=== PATIENT | female | born 1945 | race Caucasian/White ===

== ENCOUNTER 2019-05-15 08:20 | Outpatient (CLI) | payer MEDICARE, SELFPAY ==
--- NOTE | ~2019-05-15 | CT_ITS ---
EXAMINATION: CT abdomen pelvis w con DATE: 05/15/2019 08:44 INDICATION: Colorectal neoplasm. TECHNIQUE: Computed tomography (CT) of the abdomen and pelvis was performed with 100 mL Omnipaque 350 intravenous contrast. Automated exposure control and iterative reconstruction technique were employe d. The dose-length product was 199.63 mGy-cm. COMPARISON: CT abdomen and pelvis 06/14/2018 FINDINGS: The visualized portions of the lung bases are clear without pneumonia or pleural effusion. The heart size is normal. No pericardial effusion. The liver, gallbladder, spleen, and adrenal glands are normal. There is a punctate calcification in the pancreas that may be chronic pancreatitis. Ther e are cysts in the kidneys measuring up to 7 mm on the right. There are changes of right hemicolectom y. There are no dilated loops of bowel. There are no pathologically enlarged lymph nodes. There is no free intraperitoneal fluid. There is lumbar levoscoliosis and severe spondylosis. IMPRESSION: 1. No evidence of metastatic disease. Reviewed, dictated and finalized at location A.
[2019-05-15 08:40] LABS: Estimated Glomerular Filt Rate > 60
== END 2019-05-15 08:21 | disposition home or self-care (01) ==
PROVIDERS: PCP Emergency Medicine; Visit Provider Internal Medicine Hematology & Oncology
DX: D49.0 Neoplasm of unspecified behavior of digestive system (principal)
CPT/HCPCS: 36415; 74177; Q9967

== ENCOUNTER 2019-09-18 09:04 | Outpatient (CLI) | payer MEDICARE, SELFPAY ==
--- NOTE | ~2019-09-18 | DEXA_ITS ---
Bone Density Report Name: Elke Haque Age: 74 Sex: Female Ethnicity: White Date of : 1945 Indication: postmenopausal osteoporosis; monitoring treatment; hysterectomy; Referring Provider: DASIA ANDREWS Study: Bone densitometry was performed. Exam Date: September 18, 2019 Accession number: [id number] Bone Density: Region BMD T-score Z-score Classification AP Spine (L1-L4) 0.920 -1.2 1.1 Osteopenia Femoral Neck (Left) 0.505 -3.1 -1.2 Osteoporosis Total Hip (Left) 0.606 -2.8 -1.1 Osteoporosis Total Hip Bilateral Avg 0.632 -2.6 -0.9 Osteoporosis Femoral Neck (Right) 0.563 -2.6 -0.6 Osteoporosis Total Hip (Right) 0.656 -2.3 -0.7 Osteopenia World Health Organization criteria for BMD impression classify patients as: Normal (T-score at or above -1.0), Osteopenia (T-score between -1.0 and -2.5), or Osteoporosis (T-score at or below -2.5). 10-year Fracture Risk: FRAX not reported because: Some T-score for Spine Total or Hip Total or Femoral Neck at or below -2.5 Treated for osteoporosis Previous Exams: Region Exam Age BMD T-score BMD Change BMD Change Date g/cm2 vs Baseline vs Previous AP Spine(L1-L4) 09/18/2019 74 0.920 -1.2 0.072(8.5%)* 0.072(8.5%)* 01/14/2014 68 0.848 -1.8 Total Hip(Left) 09/18/2019 74 0.606 -2.8 -0.011(-1.8%) -0.012(-1.9%) 03/16/2016 70 0.618 -2.7 0.001(0.1%) 0.001(0.1%) 01/14/2014 68 0.617 -2.7 Total Hip(Right) 09/18/2019 74 0.656 -2.3 0.012(1.8%) 0.009(1.4%) 03/16/2016 70 0.647 -2.4 0.003(0.4%) 0.003(0.4%) 01/14/2014 68 0.645 -2.4 *Denotes significance at 95% confidence level, LSC for AP Spine = 0.022 g/cm2, LSC for Total Hip = 0.027 g/cm2 Clinical Information Provided by Patient: Is being treated for osteoporosis Has used the following medications: Fosamax (i.e. alendronate), Vitamin D, Calcium Has the following medical conditions: Hysterectomy Patient maximum height was 64 Menopause Age: 37 Drinks caffeinated beverages Onset of menses at age 18 Number of children 0 Impression: The patient has osteoporosis, based on the Left Femoral Neck T-score. No significant bone loss was observed. Discussion: PATIENT UNDER TREATMENT WITH NO SIGNIFICANT BMD LOSS SINCE LAST EXAM. In an untreated patient, BMD typically declines with age. A lack of decline or gain is usually a sign that treatment is efficacious and fracture risk is reduced. It is important to ask patients w
--- NOTE | ~2019-09-18 | MM_ITS ---
EXAMINATION: MM screening ingris BI w julia HISTORY: Screening TECHNIQUE: Craniocaudal and mediolateral oblique 3-D tomosynthesis images were obtained and synthetic 2-D images were generated. CAD analysis was submitted and interpreted. COMPARISON: Comparison to multiple prior studies sequentially, with oldest reviewed study dated 11/06. BREAST PARENCHYMAL COMPOSITION: There are scattered areas of fibroglandular density. FINDINGS: Bilateral breast asymmetries are stable. There is no evidence of suspicious mass, calcifica tion, or architectural distortion to suggest malignancy in either breast. There has been no suspiciou s interval change. IMPRESSION: 1. No mammographic evidence of malignancy. 2. Recommend routine screening mammography in one year. BI-RADS Category 2: Benign finding(s). Reviewed, dictated and finalized at location A.
== END 2019-09-18 09:05 | disposition home or self-care (01) ==
LOC: ANHIMG 09:06
PROVIDERS: PCP Emergency Medicine; Visit Provider Emergency Medicine
DX: Z12.31 Encounter for screening mammogram for malignant neoplasm of breast (principal); Z78.0 Asymptomatic menopausal state; M85.89 Other specified disorders of bone density and structure, multiple sites; M81.0 Age-related osteoporosis without current pathological fracture
CPT/HCPCS: 77063; 77067; 77080

== ENCOUNTER 2019-12-04 12:56 | Outpatient (CLI) | payer MEDICARE, SELFPAY | END 2019-12-04 12:57 | disposition home or self-care (01) | LOC: ANHLAB 12:58 | PROVIDERS: PCP Emergency Medicine; Visit Provider Emergency Medicine | DX: E03.9 Hypothyroidism, unspecified (principal) | CPT/HCPCS: 36415; 84443 ==

== ENCOUNTER 2020-01-15 08:51 | Outpatient (CLI) | payer MEDICARE, SELFPAY ==
--- NOTE | ~2020-01-15 | CT_ITS ---
EXAMINATION: CT abdomen pelvis w con DATE: 01/15/2020 09:21 INDICATION: Restaging of colon cancer TECHNIQUE: Computed tomography (CT) of the abdomen and pelvis was performed with 100 cc Omnipaque 350 intravenous contrast. Automated exposure control and iterative reconstruction technique were employe d. Exam dose: 303.15 mGy-cm total exam DLP. COMPARISON: 05/15/2019 CT abdomen pelvis FINDINGS: The lung bases are clear. Normal heart size. No pericardial or pleural effusion. The liver, gallbladder, bile ducts, spleen, pancreas, pancreatic duct and adrenal glands are unremark able. 7 mm upper pole right renal cyst. 6 mm lower pole left renal probable cyst. No urinary tract calculus or hydroureteronephrosis. There is atherosclerotic calcification of the abdominal aorta but no aneurysm. No intraperitoneal or retroperitoneal or pelvic mass lesion or adenopathy or ascites is detected. The urinary bladder is re latively evacuated, unremarkable. Status post hysterectomy. There is mild diverticulosis of the sigmoid colon; no CT evidence of diverticulitis. Status post right colon resection for history of malignant colon neoplasm. No bowel obstruction, justin l wall thickening, pneumatosis or intraperitoneal free air. Small fat-containing umbilical hernia. Prominent degenerative disc disease at L3-4, with associated minimal retrolisthesis. No suspicious osteolytic or osteoblastic lesions are noted. IMPRESSION: Status post right colectomy for colon cancer Probable bilateral renal cysts Status post hysterectomy Mild sigmoid colon diverticulosis Reviewed, dictated and finalized at Location A. Reviewed, dictated and finalized at location A. LTER
[2020-01-15 09:15] LABS: Estimated Glomerular Filt Rate > 60
== END 2020-01-15 08:52 | disposition home or self-care (01) ==
PROVIDERS: PCP Emergency Medicine; Visit Provider Internal Medicine Hematology & Oncology
DX: C18.2 Malignant neoplasm of ascending colon (principal); N28.1 Cyst of kidney, acquired; Z90.710 Acquired absence of both cervix and uterus; I70.0 Atherosclerosis of aorta; K42.9 Umbilical hernia without obstruction or gangrene; M47.816 Spondylosis without myelopathy or radiculopathy, lumbar region
CPT/HCPCS: 74177; Q9967

== ENCOUNTER 2020-04-01 13:31 | Outpatient (CLI) | payer MEDICARE, SELFPAY ==
[2020-04-01 17:07] LABS: Thyroid Stimulating Hormone 0.405 uIU/mL (0.465-4.680)
== END 2020-04-01 13:32 | disposition home or self-care (01) ==
LOC: ANHLAB 13:32
PROVIDERS: PCP Emergency Medicine; Visit Provider Emergency Medicine
DX: E03.9 Hypothyroidism, unspecified (principal)
CPT/HCPCS: 36415; 84443

== ENCOUNTER 2020-07-22 08:39 | Outpatient (CLI) | payer MEDICARE, SELFPAY ==
[2020-07-22 10:43] LABS: Cholesterol 168 mg/dL (0-200); HDL Direct 63 mg/dL; Triglycerides 122 mg/dL (<150)
[2020-07-22 10:54] LABS: LDL Cholesterol Direct 81 mg/dL
[2020-07-22 11:17] LABS: Thyroid Stimulating Hormone 0.105 uIU/mL (0.465-4.680)
== END 2020-07-22 08:40 | disposition home or self-care (01) ==
LOC: ANHLAB 08:40
PROVIDERS: PCP Emergency Medicine; Visit Provider Emergency Medicine
DX: E03.9 Hypothyroidism, unspecified (principal); E78.5 Hyperlipidemia, unspecified
CPT/HCPCS: 36415; 80061; 84443

== ENCOUNTER 2020-09-16 14:38 | Outpatient (CLI) | payer MEDICARE, SELFPAY | END 2020-09-16 14:39 | disposition home or self-care (01) | LOC: ANHLAB 14:41 | PROVIDERS: PCP Emergency Medicine; Visit Provider Emergency Medicine | DX: E03.9 Hypothyroidism, unspecified (principal) | CPT/HCPCS: 36415; 84443 ==

== ENCOUNTER 2020-12-09 15:19 | Outpatient (CLI) | payer MEDICARE, SELFPAY ==
--- NOTE | ~2020-12-09 | MM_ITS ---
EXAMINATION: MM screening ingris BI w julia HISTORY: Screening TECHNIQUE: Craniocaudal and mediolateral oblique 3-D tomosynthesis images were obtained and synthetic 2-D images were generated. CAD analysis was submitted and interpreted. COMPARISON: Comparison to multiple prior studies sequentially, with oldest reviewed study dated 03/2014. BREAST PARENCHYMAL COMPOSITION: The breasts are heterogeneously dense, which may obscure small masses . FINDINGS: There is no evidence of suspicious mass, calcification, or architectural distortion to sugg est malignancy in either breast. There has been no suspicious interval change. IMPRESSION: 1. No mammographic evidence of malignancy. 2. Recommend routine screening mammography in one year. BI-RADS Category 1: Negative Reviewed, dictated and finalized at location A.
== END 2020-12-09 15:20 | disposition home or self-care (01) ==
PROVIDERS: PCP Emergency Medicine; Visit Provider Emergency Medicine
DX: Z12.31 Encounter for screening mammogram for malignant neoplasm of breast (principal)
CPT/HCPCS: 77063; 77067

== ENCOUNTER 2021-01-13 08:31 | Outpatient (CLI) | payer MEDICARE, SELFPAY ==
--- NOTE | ~2021-01-13 | CT_ITS ---
EXAMINATION: CT abdomen pelvis w con INDICATION: Malignant neoplasm of the ascending colon TECHNIQUE: Computed tomographic images of the abdomen and pelvis were obtained after the administrati on of 100 cc of Omnipaque 350 intravenous contrast. The dose-length product (DLP) was 276.74 mGy-cm. Automated exposure control and iterative reconstruction technique were employed. COMPARISON: 01/15/2020, 05/15/2019, 06/24/2018 FINDINGS: The lung bases are clear. The heart size is normal. A stable 6 mm hyperenhancing lesion of the right hepatic lobe is consistent with a flash filling hemangioma or focal nodular hyperplasia. No suspicious liver mass is identified. The spleen, gallbladder, and adrenal glands are normal. A punct ate calcification of the pancreas could reflect chronic pancreatitis. Cysts of the kidneys measure up to 8 mm on the right. There are changes of right hemicolectomy. No pathologically enlarged abdominal or pelvic lymph nodes are identified. There is no free intraperitoneal gas or evidence of bowel obst ruction. There is calcified atherosclerosis of the aorta and many of the other arteries. There is mod erate lumbar spondylosis. IMPRESSION: 1. Changes of right hemicolectomy without evidence of recurrent or metastatic disease. Reviewed, dictated and finalized at location A. 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 Changes of right hemicolectomy without evidence of recurrent or metastatic d isease.
== END 2021-01-13 08:32 | disposition home or self-care (01) ==
LOC: ANHIMG 08:35
PROVIDERS: PCP Emergency Medicine; Visit Provider Internal Medicine Hematology & Oncology
DX: C18.2 Malignant neoplasm of ascending colon (principal)
CPT/HCPCS: 74177; Q9967

== ENCOUNTER 2021-03-03 13:47 | Outpatient (CLI) | payer MEDICARE, SELFPAY | END 2021-03-03 13:48 | disposition home or self-care (01) | LOC: ANHLAB 13:51 | PROVIDERS: PCP Emergency Medicine; Visit Provider Internal Medicine Hematology & Oncology | DX: R79.89 Other specified abnormal findings of blood chemistry (principal) | CPT/HCPCS: 36415; 84443 ==

== ENCOUNTER 2021-04-28 13:06 | Outpatient (CLI) | payer MEDICARE, SELFPAY ==
[2021-04-28 16:46] LABS: Alanine Aminotransferase 17 U/L (4-35); Albumin Level 4.2 g/dL (3.5-5.1); Alkaline Phosphatase 80 U/L (38-126); Anion Gap 4 mmol/L (8-16); Aspartate Amino Transferase 30 U/L (14-36); Bilirubin,Total 0.7 mg/dL (0.2-1.3); Blood Urea Nitrogen 16 mg/dL (7-17); Calcium 9.2 mg/dL (8.4-10.2); Carbon Dioxide 27 mmol/L (22-30); Chloride 108 mmol/L (98-107); Cholesterol 158 mg/dL (0-200); Estimated Glomerular Filt Rate > 60; Glucose 84 mg/dL (65-110); HDL Direct 52 mg/dL; Potassium 4.1 mmol/L (3.4-5.0); Sodium 139 mmol/L (137-145); Triglycerides 105 mg/dL (<150)
[2021-04-28 16:57] LABS: LDL Cholesterol Direct 72 mg/dL
[2021-04-28 17:36] LABS: Thyroid Stimulating Hormone 0.798 uIU/mL (0.465-4.680)
== END 2021-04-28 13:07 | disposition home or self-care (01) ==
LOC: ANHLAB 13:07
PROVIDERS: PCP Emergency Medicine; Visit Provider Internal Medicine Hematology & Oncology
DX: I10 Essential (primary) hypertension (principal)
CPT/HCPCS: 36415; 80053; 80061; 84443

== ENCOUNTER 2021-09-03 00:56 | Day surgery (SDC) | payer MEDICARE, SELFPAY ==
[2021-08-19 12:24] VITALS: BMI 22.3
--- NOTE | 2021-09-02 13:29 | SUR.PREOP ---
1329 Patient called and instructed not to take the magnesium citrate due to possible contamination. Patient voiced understanding.
[2021-09-03 08:36] VITALS: BP 154/91; PULSE 93; RESP 19; TEMP 36.4; O2SAT 100
--- NOTE | 2021-09-03 08:42 | PM.IMHP ---
H&P: HPI History of Present Illness Date/Time: 09/03/21 08:42 Chief Complaint: history of colon cancer. Narrative: This is a 76-year-old white female patient presents for screening colonoscopy. Patient was found to have colon cancer diagnosed 2017. This was subsequently treated resected. Patient had unremarkable colonoscopy 3 years ago 2018. Patient presents today for follow-up surveillance screening colonoscopy. Patient reports that her current weight appetite and bowel movements are normal. She denies abdominal pain. Has had no bleeding. Family history is noncontributory. Review of Systems Review of Systems: Review of systems noncontributory. [facility] Past Medical History Medical History Abnormal ultrasound of breast Adnexal cyst Adnexal mass Age-related osteoporosis without current pathological fracture Atrial fibrillation X1 DURING CHEMO, TAKES XARELTO. FOLLOWS WITH Chronic a-fib Colon cancer RT COLON RESECTION 07/2017, LAST CHEMO 03/2018 Essential (primary) hypertension Fibrocystic changes of right breast HTN (hypertension) Hypercholesterolemia Hypothyroidism Lesion of ovary Mass of right breast on mammogram Mixed hyperlipidemia Neoplasms New onset a-fib Other hyperlipidemia Positive fecal occult blood test Post menopausal problems Villous adenoma of colon Vitamin D deficiency Family History Family History Mother Hypertension Family history of malignant neoplasm Family history of lung cancer Family history of malignant neoplasm of bone Family history of malignant neoplasm of breast Father Hypertension, Onset Age: 77 Family history of malignant neoplasm, Onset Age: 77 Family history of throat cancer Family history of malignant neoplasm of urinary bladder Other Family history of cardiovascular disease Social History Social History Smoking status: Never smoker Alcohol intake: never Substance use: never Substance use type: does not use Living arrangements: alone Gender identity (if verbalized by the patient): Female Spiritual care concerns: No Meds Home Medications and Allergies Home Medications Medication Instructions Recorded Confirmed Type calcium carbonate 600 mg-vitamin 1 cap PO BID 11/23/18 09/03/21 History D3 12.5 mcg (500 unit) capsule (Calcium 600 with Vitamin D3) vitamin E 268 mg (400 unit) capsule 400 unit PO DAILY 02/02/19 09/03/21 History alprazolam 0.25 mg tablet See Rx Instructions .Route 02/17/20 07/28/22 History .COMPLEX PRN Anxiety lutein 6 mg tablet 6 mg PO DAILY 03/26/19 09/03/21 History multivitamin 1 tablet PO .COMPLEX 03/26/19 09/03/21 History metoprolol succinate 50 mg See Rx Instructions .Route 09/24/20 09/03/21 Rx tablet,extended release 24 hr .COMPLEX #90 tabs alendronate 70 mg tablet See Rx Instructions .Route 12/31/20 09/03/21 Rx .COMPLEX #12 tabs simvastatin 40 mg tablet See Rx Instructions .Route 03/06/21 09/03/21 Rx .COMPLEX #90 tabs levothyroxine 75 mcg tablet 75 mcg PO DAILY #90 tabs 05/11/21 09/03/21 Rx rivaroxaban 15 mg tablet (Xarelto) See Rx Instructions .Route 06/22/21 09/03/21 Rx .COMPLEX #90 tabs peg 3350-electrolytes 236 240 ml PO Q10M #4,000 mL 08/04/21 09/03/21 Rx gram-22.74 gram-6.74 gram-5.86 gram solution (Golytely) Allergies Allergy/AdvReac Type Severity Reaction Status Date / Time No Known Allergies Allergy Verified 09/03/21 08:32 Vital Signs Vital Signs - 24 hr 09/03/21 08:36 Temperature 97.6 F Pulse Rate 93 Respiratory Rate 19 Blood Pressure 154/91 H Pulse Oximetry 100 Oxygen Delivery Room Air Exam Narrative: Physical exam reveals patient to be alert. Vital signs stable. HEENT exam is unremarkable. Patient is anicteric. Lungs are clear to auscultation and percussion. Hear
--- NOTE | 2021-09-03 08:43 | WPDANESEPPF ---
Anes - Initial Pre Proc Eval Procedure: Operation Date: 09/03/21 09:00 Proposed Procedures p Screening Colonoscopy - Panchito Santa MD Date/Time: 09/03/21 08:43 Surgeon: Panchito Santa MD Pre Op Diagnosis: hx of colon ca Patient Data Age: 76 Gender: F Height: 1.63 m Weight: 58.5 kg Last Vital Signs Temp 36.4 C 09/03/21 08:36 Pulse 93 09/03/21 08:36 Resp 19 09/03/21 08:36 BP 154/91 H 09/03/21 08:36 Pulse Ox 100 09/03/21 08:36 O2 Del Method Room Air 09/03/21 08:36 Allergies Allergy/AdvReac Type Severity Reaction Status Date / Time No Known Allergies Allergy Verified 09/03/21 08:32 Home Medications Medication Instructions Recorded Confirmed Type calcium carbonate 600 mg-vitamin 1 cap PO BID 11/23/18 09/03/21 History D3 12.5 mcg (500 unit) capsule (Calcium 600 with Vitamin D3) vitamin E 268 mg (400 unit) capsule 400 unit PO DAILY 02/02/19 09/03/21 History alprazolam 0.25 mg tablet See Rx Instructions .Route 03/26/19 09/03/21 History .COMPLEX PRN Anxiety lutein 6 mg tablet 6 mg PO DAILY 03/26/19 09/03/21 History multivitamin 1 tablet PO .COMPLEX 03/26/19 09/03/21 History metoprolol succinate 50 mg See Rx Instructions .Route 09/24/20 09/03/21 Rx tablet,extended release 24 hr .COMPLEX #90 tabs alendronate 70 mg tablet See Rx Instructions .Route 12/31/20 09/03/21 Rx .COMPLEX #12 tabs simvastatin 40 mg tablet See Rx Instructions .Route 03/06/21 09/03/21 Rx .COMPLEX #90 tabs levothyroxine 75 mcg tablet 75 mcg PO DAILY #90 tabs 05/11/21 09/03/21 Rx rivaroxaban 15 mg tablet (Xarelto) See Rx Instructions .Route 06/22/21 09/03/21 Rx .COMPLEX #90 tabs peg 3350-electrolytes 236 240 ml PO Q10M #4,000 mL 08/04/21 09/03/21 Rx gram-22.74 gram-6.74 gram-5.86 gram solution (Golytely) Patient hx anesthesia problems: none Family hx anesthesia problems: none Results Review: All pre-operative results and documents have been reviewed as part of the pre-operative evaluation. [facility] Past Medical History Medical History Abnormal ultrasound of breast Adnexal cyst Adnexal mass Age-related osteoporosis without current pathological fracture Atrial fibrillation X1 DURING CHEMO, TAKES XARELTO. FOLLOWS WITH Chronic a-fib Colon cancer RT COLON RESECTION 07/2017, LAST CHEMO 03/2018 Essential (primary) hypertension Fibrocystic changes of right breast HTN (hypertension) Hypercholesterolemia Hypothyroidism Lesion of ovary Mass of right breast on mammogram Mixed hyperlipidemia Neoplasms New onset a-fib Other hyperlipidemia Positive fecal occult blood test Post menopausal problems Villous adenoma of colon Vitamin D deficiency Family History Family History Mother Hypertension Family history of malignant neoplasm Family history of lung cancer Family history of malignant neoplasm of bone Family history of malignant neoplasm of breast Father Hypertension, Onset Age: 77 Family history of malignant neoplasm, Onset Age: 77 Family history of throat cancer Family history of malignant neoplasm of urinary bladder Other Family history of cardiovascular disease Social History Social History Smoking status: Never smoker Alcohol intake: never Substance use: never Substance use type: does not use Living arrangements: alone Gender identity (if verbalized by the patient): Female Spiritual care concerns: No Anes - Eval Final PreProcedure Day of Procedure 09/03/21 08:43 Patient weight: normal Heart: regular rate and rhythm Lungs: clear to auscultation Airway: Mallampati scale class II Last oral intake: >/= 8 hours ASA classification: III Emergent: no Anesthetic plan: proceed Anesthesia type and monitoring: general GIVS and standard monitoring Results Review: All pre-
[2021-09-03] MEDS: LACTATED RINGERS 1,000 ML 150 ML IV CONT (08:52)
[2021-09-03 09:36] VITALS: BP 132/68; PULSE 89; RESP 17; O2SAT 97
[2021-09-03 09:46] VITALS: BP 114/65; PULSE 78; RESP 23; O2SAT 98
[2021-09-03 09:56] VITALS: BP 134/66; PULSE 72; RESP 21; O2SAT 96
== END 2021-09-03 10:17 | disposition home or self-care (01) ==
PROVIDERS: PCP Emergency Medicine; Visit Provider Internal Medicine Gastroenterology
PROC: 0DJD8ZZ Inspection of Lower Intestinal Tract, Via Natural or Artificial Opening Endoscopic (ICD-10-PCS; CPT 45378; principal; 2021-09-03 09:00)
DX: Z12.11 Encounter for screening for malignant neoplasm of colon (principal); K64.8 Other hemorrhoids; Z98.0 Intestinal bypass and anastomosis status; Z90.49 Acquired absence of other specified parts of digestive tract; Z85.038 Personal history of other malignant neoplasm of large intestine; I48.20 Chronic atrial fibrillation, unspecified; I10 Essential (primary) hypertension; E78.00 Pure hypercholesterolemia, unspecified; E03.9 Hypothyroidism, unspecified; E78.2 Mixed hyperlipidemia; M81.0 Age-related osteoporosis without current pathological fracture; E55.9 Vitamin D deficiency, unspecified; Z92.21 Personal history of antineoplastic chemotherapy; Z79.01 Long term (current) use of anticoagulants
CPT/HCPCS: G0105; J2704; J7120

== ENCOUNTER 2021-10-20 11:10 | Outpatient (CLI) | payer MEDICARE, SELFPAY ==
[2021-10-20 13:22] LABS: Alanine Aminotransferase 22 U/L (6-35); Albumin Level 4.3 g/dL (3.5-5.1); Alkaline Phosphatase 75 U/L (38-126); Anion Gap 11 mmol/L (8-16); Aspartate Amino Transferase 30 U/L (14-36); Bilirubin,Total 0.8 mg/dL (0.2-1.3); Blood Urea Nitrogen 14 mg/dL (7-17); Calcium 9.2 mg/dL (8.4-10.2); Carbon Dioxide 24 mmol/L (22-30); Chloride 108 mmol/L (98-107); Cholesterol 176 mg/dL (0-200); Estimated Glomerular Filt Rate > 60; Glucose 93 mg/dL (65-110); HDL Direct 53 mg/dL; Potassium 4.1 mmol/L (3.4-5.0); Sodium 143 mmol/L (137-145); Triglycerides 146 mg/dL (<150)
[2021-10-20 13:32] LABS: LDL Cholesterol Direct 87 mg/dL
[2021-10-20 13:53] LABS: Thyroid Stimulating Hormone 0.161 uIU/mL (0.465-4.680)
[2021-10-23 11:43] LABS: Vitamin D 1,25 (OH)2 Total 32 pg/mL (18-72); Vitamin D2 1,25 (OH)2 <8 pg/mL; Vitamin D3 1,25 (OH)2 32 pg/mL
== END 2021-10-20 11:11 | disposition home or self-care (01) ==
LOC: ANHLAB 11:12
PROVIDERS: PCP Emergency Medicine; Visit Provider Emergency Medicine
DX: E03.9 Hypothyroidism, unspecified (principal); I10 Essential (primary) hypertension; E55.9 Vitamin D deficiency, unspecified
CPT/HCPCS: 36415; 80053; 80061; 82652; 84443

== ENCOUNTER 2022-01-06 07:40 | Outpatient (CLI) | payer MEDICARE, SELFPAY ==
--- NOTE | ~2022-01-06 | DEXA_ITS ---
Bone Density Report Name: NATE GREGORY Age: 76 Sex: Female Ethnicity: White Date of : 1945 Indication: postmenopausal; screening for osteoporosis; cancer; hysterectomy; Referring Provider: DASIA ANDREWS Study: Bone densitometry was performed. Exam Date: January 06, 2022 Accession number: [id number] Bone Density: Region BMD T-score Z-score Classification AP Spine(L1-L4) 0.914 -1.2 1.2 Osteopenia Femoral Neck (Left) 0.541 -2.8 -0.7 Osteoporosis Total Hip (Left) 0.596 -2.8 -1.1 Osteoporosis Femoral Neck (Right) 0.574 -2.5 -0.4 Osteoporosis Total Hip (Right) 0.643 -2.4 -0.7 Osteopenia Total Hip Mean 0.619 -2.6 -0.9 Osteoporosis World Health Organization criteria for BMD impression classify patients as: Normal (T-score at or above -1.0), Osteopenia (T-score between -1.0 and -2.5), or Osteoporosis (T-score at or below -2.5). 10-year Fracture Risk: FRAX not reported because: Some T-score for Spine Total or Hip Total or Femoral Neck at or below -2.5 Treated for osteoporosis Clinical Information Provided by Patient: Is being treated for osteoporosis Has used the following medications: Fosamax (i.e. alendronate), Vitamin D, Calcium Has the following medical conditions: Cancer, Hysterectomy Patient maximum height was 64 Menopause Age: 37 Drinks caffeinated beverages Onset of menses at age 18 Number of children 0 Impression: The patient has osteoporosis, based on the Left Total Hip T-score. Discussion: It is important to ask patients whether they are taking their medications and to encourage continued and appropriate compliance with their osteoporosis therapies to reduce fracture risk. It is also important to review their risk factors and encourage appropriate calcium and vitamin D intakes, exercise, fall prevention and other lifestyle measures. Follow-Up: Consider a repeat BMD and Vertebral Fracture Assessment (VFA) exam in 2 years or sooner if medically necessary, to reassess this patient's status. Reported by: [facility] on 01/06/2022 8:16:00 AM. Reviewed, dictated and finalized at location AReal MEI
--- NOTE | ~2022-01-06 | MM_ITS ---
EXAMINATION: MM screening ingris BI w julia HISTORY: Screening mammogram TECHNIQUE: Craniocaudal and mediolateral oblique 3-D tomosynthesis images were obtained and synthetic 2-D images were generated. Rotated lateral craniocaudal view of right breast. CAD analysis was submi tted and interpreted. COMPARISON: 12/09/2020, 09/18/2019 bilateral screening mammogram examinations BREAST PARENCHYMAL COMPOSITION: The breasts are heterogeneously dense, which may obscure small masses . FINDINGS: There are 2 biopsy markers on the right. History of prior bilateral benign breast biopsies. Occasional benign calcifications. There is no evidence of suspicious mass, calcification, or archite ctural distortion to suggest malignancy in either breast. There has been no suspicious interval richter e. IMPRESSION: 1. No mammographic evidence of malignancy. 2. Recommend routine screening mammography in one year. BI-RADS Category 2: Benign finding(s). Reviewed, dictated and finalized at location A. 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
== END 2022-01-06 07:41 | disposition home or self-care (01) ==
PROVIDERS: PCP Emergency Medicine; Visit Provider Emergency Medicine
DX: Z12.31 Encounter for screening mammogram for malignant neoplasm of breast (principal); Z78.0 Asymptomatic menopausal state; M85.89 Other specified disorders of bone density and structure, multiple sites; M81.0 Age-related osteoporosis without current pathological fracture; R79.89 Other specified abnormal findings of blood chemistry; I10 Essential (primary) hypertension
CPT/HCPCS: 36415; 36592; 77063; 77067; 77080; 80053; 82378; 84443; 85025

== ENCOUNTER 2022-01-12 09:28 | Outpatient (CLI) | payer MEDICARE, SELFPAY ==
--- NOTE | ~2022-01-12 | CT_ITS ---
EXAMINATION: CT abdomen pelvis w con DATE: 01/12/2022 10:24 INDICATION: Restaging of malignant neoplasm of ascending colon TECHNIQUE: Computed tomography (CT) of the abdomen and pelvis was performed with 100 CC Omnipaque 350 intravenous contrast. Automated exposure control and iterative reconstruction technique were employe d. Exam dose: 207.36 mGy-cm total exam DLP. COMPARISON: 01/13/2021 CT abdomen pelvis . FINDINGS: The lung bases are clear of infiltrate or consolidation. Normal heart size. No pericardial or pleural effusion. Diffuse hepatic steatosis. No hepatic space-occupying mass lesion. The gallbladder is present. No janice e duct or pancreatic duct dilatation. No pancreatic mass lesion or ductal dilatation. Normal splenic size. Normal morphology of the adrenal glands. 8 mm upper pole right renal cyst. A few additional small bilateral renal cysts are suggested. No urinary tract calculus or hydroureteronephrosis. The urinary bladder is unremarkable status post h ysterectomy. There is atherosclerotic calcification but normal caliber of the abdominal aorta. No intraperitoneal or retroperitoneal or pelvic mass lesion or adenopathy or ascites. Mild diverticulosis of the sigmoid colon; no CT evidence of diverticulitis. Status post right colecto my. No bowel obstruction, bowel wall thickening, pneumatosis or intraperitoneal free air. Mildly severe degenerative disc disease and mild retrolisthesis at L3-4. Moderate degenerative disc d isease and mild retrolisthesis at L1-2. No suspicious osteolytic or osteoblastic lesions are noted. IMPRESSION: Status post right colectomy for carcinoma the ascending colon; no abdominal or pelvic ma ss lesion or adenopathy or metastatic disease is noted Reviewed, dictated and finalized at Location A. Reviewed, dictated and finalized at location B. [employer] IMPRESSION: Status post right colectomy for carcinoma the ascending colon; no abdominal or pelvic mass lesion or adenopathy or metastatic disease is noted
== END 2022-01-12 09:29 | disposition home or self-care (01) ==
LOC: ANHIMG 09:30
PROVIDERS: PCP Emergency Medicine; Visit Provider Internal Medicine Hematology & Oncology
DX: C18.2 Malignant neoplasm of ascending colon (principal); Z90.49 Acquired absence of other specified parts of digestive tract
CPT/HCPCS: 74177; Q9967

== ENCOUNTER 2022-03-04 08:33 | Outpatient (CLI) | payer MEDICARE, SELFPAY ==
[2022-03-04 11:58] LABS: Thyroid Stimulating Hormone 0.071 uIU/mL (0.465-4.680)
== END 2022-03-04 08:34 | disposition home or self-care (01) ==
LOC: ANHLAB 08:37
PROVIDERS: PCP Emergency Medicine; Visit Provider Emergency Medicine
DX: R79.89 Other specified abnormal findings of blood chemistry (principal); E03.9 Hypothyroidism, unspecified
CPT/HCPCS: 36415; 84443

== ENCOUNTER 2022-04-20 08:16 | Outpatient (CLI) | payer MEDICARE, SELFPAY ==
[2022-04-20 12:55] LABS: Alanine Aminotransferase 31 U/L (6-35); Albumin Level 4.4 g/dL (3.5-5.1); Alkaline Phosphatase 81 U/L (38-126); Anion Gap 6 mmol/L (8-16); Aspartate Amino Transferase 36 U/L (14-36); Blood Urea Nitrogen 13 mg/dL (7-17); Calcium 8.9 mg/dL (8.4-10.2); Carbon Dioxide 27 mmol/L (22-30); Chloride 107 mmol/L (98-107); Cholesterol 199 mg/dL (0-200); Estimated Glomerular Filt Rate > 60; Glucose 88 mg/dL (65-110); HDL Direct 64 mg/dL; Potassium 4.1 mmol/L (3.4-5.0); Sodium 140 mmol/L (137-145); Triglycerides 151 mg/dL (<150)
[2022-04-20 13:05] LABS: LDL Cholesterol Direct 103 mg/dL
[2022-04-20 13:20] LABS: Thyroid Stimulating Hormone > 100.000 uIU/mL (0.465-4.680)
== END 2022-04-20 08:17 | disposition home or self-care (01) ==
LOC: ANHLAB 08:17
PROVIDERS: PCP Emergency Medicine; Visit Provider Emergency Medicine
DX: R79.89 Other specified abnormal findings of blood chemistry (principal); I10 Essential (primary) hypertension
CPT/HCPCS: 36415; 80053; 80061; 84443

== ENCOUNTER 2022-04-21 12:59 | Emergency (ER) | payer MEDICARE, SELFPAY ==
[2022-04-21 13:13] VITALS: BP 171/68; PULSE 76; RESP 20; TEMP 36.9; O2SAT 100
[2022-04-21 13:36] VITALS: BP 152/91; PULSE 80; RESP 15; O2SAT 100
--- NOTE | 2022-04-21 13:38 | ED.RECABL ---
HPI - Recheck/Abnormal Lab/Rx General Chief Complaint: Recheck/Abnormal Lab/Rx <Margarette Sheldon PA-C - Last Filed: 04/21/22 16:28> Stated Complaint: Sent by PCP for high TSH levels <Margarette Sheldon PA-C - Last Filed: 04/21/22 16:28> Time Seen by Provider: 04/21/22 13:19 <Margarette Sheldon PA-C - Last Filed: 04/21/22 16:28> History of Present Illness HPI narrative: Patient is a 77-year-old female with a history of thyroidectomy, on levothyroxine, sent here by her primary doctor due to concerns of for a TSH of > 100 obtained on routine outpatient labs. Patient states that she has her thyroid levels checked frequently and they are commonly out of range, she has required numerous adjustments to her medicine over the past several years and recently her dose was halfed to 25 mics a day. Patient is asymptomatic, states that she was out grocery shopping and then cleaning her house all day and she has not felt fatigued, has chest pain, shortness of breath or any symptoms at all. <Margarette Sheldon PA-C - Last Filed: 04/21/22 16:28> Related Data Home Medications: Home Medications Medication Instructions Recorded Confirmed calcium carbonate 600 mg-vitamin 1 cap PO BID 11/23/18 09/03/21 D3 12.5 mcg (500 unit) capsule (Calcium 600 with Vitamin D3) vitamin E 268 mg (400 unit) capsule 400 unit PO DAILY 02/02/19 09/03/21 alprazolam 0.25 mg tablet See Rx Instructions .Route 03/26/19 09/03/21 .COMPLEX PRN Anxiety lutein 6 mg tablet 6 mg PO DAILY 03/26/19 09/03/21 multivitamin 1 tablet PO .COMPLEX 03/26/19 09/03/21 <LISY Diaz Last Filed: 04/21/22 16:28> Allergies/Adverse Reactions: Allergies Allergy/AdvReac Type Severity Reaction Status Date / Time No Known Allergies Allergy Verified 04/21/22 13:00 <Margarette Sheldon PA-C - Last Filed: 04/21/22 16:28> Review of Systems Review of Systems: Gen.: Denies fevers or chills Eyes: Denies eye pain or visual change ENT: Denies congestion Respiratory: Denies shortness of breath or cough CV: Denies chest pain or palpitations GI: Denies abdominal pain nausea, emesis or diarrhea denies burning, urgency, frequency or hematuria Musculoskeletal: Denies back pain or muscle pain Neuro: Denies numbness, tingling, weakness or focal weakness Skin: Denies rash Except as documented, all other systems reviewed and negative <Margarette Sheldon PA-C - Last Filed: 04/21/22 16:28> [facility] Past Medical History Medical History: Medical History Abnormal ultrasound of breast Adnexal cyst Adnexal mass Age-related osteoporosis without current pathological fracture Atrial fibrillation X1 DURING CHEMO, TAKES XARELTO. FOLLOWS WITH Chronic a-fib Colon cancer RT COLON RESECTION 07/2017, LAST CHEMO 03/2018 Essential (primary) hypertension Fibrocystic changes of right breast HTN (hypertension) Hypercholesterolemia Hypothyroidism Lesion of ovary Mass of right breast on mammogram Mixed hyperlipidemia Neoplasms New onset a-fib Other hyperlipidemia Positive fecal occult blood test Post menopausal problems Villous adenoma of colon Vitamin D deficiency <Margarette Sheldon PA-C - Last Filed: 04/21/22 16:28> Family History Family History: Family History Mother Hypertension Family history of malignant neoplasm Family history of lung cancer Family history of malignant neoplasm of bone Family history of malignant neoplasm of breast Father Hypertension, Onset Age: 77 Family history of malignant neoplasm, Onset Age: 77 Family history of throat cancer Family history of malignant neoplasm of urinary bladder Other Family history of cardiovascular disease <Margarette Sheldon PA-C - Last Filed: 04/21/22 16:28> Social History Social History: Social History (
[2022-04-21 13:56] LABS: Basophils Percent Auto 0.8 % (0.2-1.2); Eosinophils Absolute Auto 0.1 K/mm3 (0-0.3); Eosinophils Percent Auto 2.6 % (0-4.4); Hematocrit 37.9 % (37.0-47.0); Hemoglobin 12.8 g/dL (12.0-15.0); Immature Granulocyte Absolute 0.02 K/mm3 (0.00-0.031); Immature Granulocyte Percent A 0.4 % (0-0.5); Lymphocytes Absolute Auto 1.43 K/mm3 (0.9-3.2); Lymphocytes Percent Auto 28.1 % (18.3-44.2); Mean Corpuscular HGB Conc 33.8 g/dl (32-36); Mean Corpuscular Volume 91.8 fl (80-100); Mean Platelet Volume 9.9 fl (7.4-10.4); Monocytes Absolute Auto 0.3 K/mm3 (0.1-0.6); Monocytes Percent Auto 6.5 % (2.6-8.5); Neutrophils Absolute Auto 3.1 K/mm3 (1.3-6.7); Neutrophils Percent Auto 61.6 % (45.5-73.1); Platelet Count Result 202 k/mm3 (150-375); Red Blood Count 4.13 M/mm3 (4.2-5.4); Red Cell Distribution Width 12.8 % (11.5-14.5); White Blood Count 5.1 K/mm3 (4.5-10.0)
[2022-04-21 14:09] LABS: Alanine Aminotransferase 31 U/L (6-35); Albumin Level 4.6 g/dL (3.5-5.1); Alkaline Phosphatase 75 U/L (38-126); Anion Gap 5 mmol/L (8-16); Aspartate Amino Transferase 36 U/L (14-36); Bilirubin,Total 0.7 mg/dL (0.2-1.3); Blood Urea Nitrogen 23 mg/dL (7-17); Calcium 9.4 mg/dL (8.4-10.2); Carbon Dioxide 28 mmol/L (22-30); Chloride 103 mmol/L (98-107); Estimated CRCL calculation 46 ml/min; Estimated Glomerular Filt Rate > 60; Glucose 98 mg/dL (65-110); Potassium 3.9 mmol/L (3.4-5.0); Sodium 136 mmol/L (137-145)
[2022-04-21 15:09] LABS: Thyroid Stimulating Hormone Reflex > 100.000 uIU/mL (0.465-4.68)
[2022-04-21 15:43] LABS: Free T4 Free Thyroxine Reflex 0.57 ng/dL (0.78-2.19)
[2022-04-21 15:52] VITALS: BP 154/90; PULSE 66; RESP 15; O2SAT 99
== END 2022-04-21 16:27 | disposition home or self-care (01) ==
PROVIDERS: Emergency Provider Physician Assistant; PCP Emergency Medicine
DX: E03.9 Hypothyroidism, unspecified (principal); I10 Essential (primary) hypertension; I48.20 Chronic atrial fibrillation, unspecified; E78.2 Mixed hyperlipidemia; Z85.038 Personal history of other malignant neoplasm of large intestine
CPT/HCPCS: 36415; 80053; 83735; 84439; 84443; 85025; 99283

== ENCOUNTER 2022-05-03 11:08 | Outpatient (CLI) | payer MEDICARE, SELFPAY ==
[2022-05-03 11:35] LABS: Hematocrit 39.4 % (37.0-47.0); Hemoglobin 13.1 g/dL (12.0-15.0); Mean Corpuscular HGB Conc 33.2 g/dl (32-36); Mean Corpuscular Hemoglobin 30.8 pg (26-34); Mean Corpuscular Volume 92.5 fl (80-100); Mean Platelet Volume 9.6 fl (7.4-10.4); Platelet Count Result 235 k/mm3 (150-375); Red Blood Count 4.26 M/mm3 (4.2-5.4); Red Cell Distribution Width 12.6 % (11.5-14.5); White Blood Count 5.5 K/mm3 (4.5-10.0)
[2022-05-03 13:21] LABS: Alanine Aminotransferase 29 U/L (6-35); Albumin Level 4.8 g/dL (3.5-5.1); Alkaline Phosphatase 70 U/L (38-126); Anion Gap 8 mmol/L (8-16); Aspartate Amino Transferase 35 U/L (14-36); Bilirubin,Total 0.8 mg/dL (0.2-1.3); Blood Urea Nitrogen 15 mg/dL (7-17); Calcium 9.7 mg/dL (8.4-10.2); Carbon Dioxide 32 mmol/L (22-30); Chloride 101 mmol/L (98-107); Cholesterol 210 mg/dL (0-200); Estimated Glomerular Filt Rate > 60; Glucose 75 mg/dL (65-110); HDL Direct 70 mg/dL; Sodium 141 mmol/L (137-145); Triglycerides 155 mg/dL (<150)
[2022-05-03 13:33] LABS: LDL Cholesterol Direct 102 mg/dL
[2022-05-03 13:47] LABS: Free T4 Free Thyroxine 0.94 ng/mL (0.78-2.19)
[2022-05-06 04:28] LABS: Triiodothyronine T3 Free 2.2 pg/mL (2.3-4.2)
[2022-05-06 23:18] LABS: Vitamin D 1,25 (OH)2 Total 41 pg/mL (18-72); Vitamin D2 1,25 (OH)2 <8 pg/mL; Vitamin D3 1,25 (OH)2 41 pg/mL
== END 2022-05-03 11:09 | disposition home or self-care (01) ==
LOC: ANHLAB 11:08
PROVIDERS: PCP Emergency Medicine; Visit Provider Internal Medicine Hematology & Oncology
DX: E55.9 Vitamin D deficiency, unspecified (principal); E03.9 Hypothyroidism, unspecified; R79.89 Other specified abnormal findings of blood chemistry
CPT/HCPCS: 36415; 80053; 80061; 82652; 84439; 84443; 84481; 85027

== ENCOUNTER 2022-07-06 08:32 | Outpatient (CLI) | payer MEDICARE, SELFPAY ==
[2022-07-06 11:07] LABS: Thyroid Stimulating Hormone 0.182 uIU/mL (0.465-4.680)
== END 2022-07-06 08:33 | disposition home or self-care (01) ==
LOC: ANHLAB 08:34
PROVIDERS: PCP Emergency Medicine; Visit Provider Internal Medicine Hematology & Oncology
DX: R79.89 Other specified abnormal findings of blood chemistry (principal); R53.83 Other fatigue
CPT/HCPCS: 36415; 84443

== ENCOUNTER 2022-07-30 00:05 | Day surgery (SDC) | payer MEDICARE, SELFPAY ==
[2022-07-23 12:55] VITALS: BMI 21.9
--- NOTE | 2022-07-23 13:12 | PC.NURSE ---
Report to the Outpatient Waiting Room, entrance under the green pavilion located off [facility], at time _8:30AM on date __07/23/22 . Planned Procedure Time: _10:30AM . Time changes happen often and if your time is changed the preop area will call you the afternoon before. - You and your visitor will be asked to self-screen and do not enter if you have any COVID symptoms. - A mask is optional within the hospital at this time. Patients may have clear liquids (water, carbonated beverages, clear teas, apple juice) until 3 hours prior to surgery with a maximum of 20 ounces. - No food from midnight until time of surgery Take the following medications with a SIP of water the morning of surgery: __LEVOTHYROXINE, METOPROLOL, ALPRAZOLAM NEEDED DO NOT STOP ANY OF YOUR OTHER PRESCRIPTION MEDICATIONS PRIOR TO SURGERY ?EXCEPT THE FOLLOWING Medications to discontinue per physician __HOLD XERALTO 7 DAYS PRE-OP PER DR. HAHN- LAST DOSE 07/22/22. HOLD ALL VITAMINS/SUPPLEMENTS 3 DAYS PRE-OP PER ANESTHESIA- LAST DOSE 07/26/22 . Please no make-up, nail maori, hairspray, perfume, deodorant, or body powder the day of surgery. No jewelry (including any body piercings) or valuables the day of surgery, leave them at home. Please take a shower or bath the night before, or the morning of, surgery with an antibacterial soap. Wear comfortable, loose fitting clothing. Children are encouraged to wear pajamas. - Jewelry must be removed prior to entering the operating room. Rings and piercings that are not removed may be cut off. - The hospital will not accept responsibility for valuables. - Please leave all valuables, including medications, at home the day of surgery. If you are going home after surgery, a licensed residential recycle driver must drive you home. - NO public transportation without another adult if you receive anesthesia. - We recommend that an adult stay with you for 24 hours following discharge. - We also recommend that you do not drive, make important decision, drink alcoholic beverages, or take any drugs that were not prescribed by your health care provider for at least 24 hours after your discharge time. Follow any additional instructions given to you from your surgeon. If you or anyone in your household have experienced Covid symptoms in the past week, please notify your surgeon or the nurse liaison at the phone number below for possible testing. Telephone instructions given to __PATIENT and asked if any additional questions and then verbalized understanding. Patient advised to call surgeon office or pre surgery nurse liaison [phone] if any additional questions.
--- NOTE | 2022-07-29 14:29 | WPDANESEPPF ---
Anes - Initial Pre Proc Eval Procedure: Operation Date: 07/30/22 10:30 Proposed Procedures p Removal Santy Cath - Parker Raymundo MD <Duong Barriga MD - Last Filed: 07/29/22 14:29> Date/Time: 07/29/22 14:29 <Duong Barriga MD - Last Filed: 07/29/22 14:29> Surgeon: Parker Raymundo MD <Duong Barriga MD - Last Filed: 07/29/22 14:29> Pre Op Diagnosis: malignant neoplasm ascending colon <Duong Barriga MD - Last Filed: 07/29/22 14:29> Patient Data Age: 77 Gender: F Height: 1.63 m Weight: 58 kg <Duong Barriga MD - Last Filed: 07/29/22 14:29> Allergies Allergy/AdvReac Type Severity Reaction Status Date / Time No Known Allergies Allergy Verified 07/23/22 12:47 <Duong Barriga MD - Last Filed: 07/29/22 14:29> Home Medications Medication Instructions Recorded Confirmed Type calcium carbonate 600 mg-vitamin 1 cap PO BID 11/23/18 07/23/22 History D3 12.5 mcg (500 unit) capsule (Calcium 600 with Vitamin D3) vitamin E 268 mg (400 unit) capsule 400 unit PO DAILY 02/02/19 07/23/22 History alprazolam 0.25 mg tablet 0.25 mg PO Q8-10H PRN Anxiety 03/26/19 07/23/22 History lutein 6 mg tablet 6 mg PO DAILY 03/26/19 07/23/22 History multivitamin 1 tablet PO DAILY 03/26/19 07/23/22 History levothyroxine 50 mcg tablet 50 mcg PO DAILY #90 tabs 07/15/22 07/23/22 Rx alendronate 70 mg tablet 70 mg PO WEEKLY 07/23/22 07/23/22 History metoprolol succinate 50 mg 50 mg PO QAM 07/23/22 07/23/22 History tablet,extended release 24 hr rivaroxaban 15 mg tablet (Xarelto) 15 mg PO DAILY 07/23/22 07/23/22 History simvastatin 40 mg tablet 40 mg PO DAILY 07/23/22 07/23/22 History <Duong Barriga MD - Last Filed: 07/29/22 14:29> Patient hx anesthesia problems: none <Hernan Levine MD - Last Filed: 07/30/22 10:22> Family hx anesthesia problems: none <Hernan Levine MD - Last Filed: 07/30/22 10:22> Results Review: All pre-operative results and documents have been reviewed as part of the pre-operative evaluation. <Duong Barriga MD - Last Filed: 07/29/22 14:29> [facility] Past Medical History Medical History: Medical History Abnormal ultrasound of breast Adnexal cyst Adnexal mass Age-related osteoporosis without current pathological fracture Atrial fibrillation X1 DURING CHEMO, TAKES XARELTO. FOLLOWS WITH Chronic a-fib Colon cancer RT COLON RESECTION 07/2017, LAST CHEMO 03/2018 Essential (primary) hypertension Fibrocystic changes of right breast HTN (hypertension) Hypercholesterolemia Hypothyroidism Lesion of ovary Mass of right breast on mammogram Mixed hyperlipidemia Neoplasms New onset a-fib Other hyperlipidemia Positive fecal occult blood test Post menopausal problems Villous adenoma of colon Vitamin D deficiency <Duong Barriga MD - Last Filed: 07/29/22 14:29> Family History Family History: Family History Mother Hypertension Family history of malignant neoplasm Family history of lung cancer Family history of malignant neoplasm of bone Family history of malignant neoplasm of breast Father Hypertension, Onset Age: 77 Family history of malignant neoplasm, Onset Age: 77 Family history of throat cancer Family history of malignant neoplasm of urinary bladder Other Family history of cardiovascular disease <Duong Barriga MD - Last Filed: 07/29/22 14:29> Social History Social History: Social History Smoking status: Never smoker Alcohol intake: never Substance use: never Substance use type: does not use Living arrangements: alone Gender identity (if verbalized by the patient): Female Spiritual care concerns: No <Duong Barriga MD - Last Filed: 07/29/22 14:29> Anes - Eval Final PreProcedure Day of Procedure
[2022-07-30 10:26] VITALS: BP 167/81; PULSE 87; RESP 14; TEMP 36.6; O2SAT 100
[2022-07-30] MEDS: LACTATED RINGERS 1,000 ML 30 ML IV CONT (10:32)
--- NOTE | 2022-07-30 11:35 | PM.IMHP ---
H&P: HPI History of Present Illness Date/Time: 07/30/22 11:35 Chief Complaint: Needs helene catheter removed Narrative: Patient is a 77-year-old female who was 4 years status post treatment for colon cancer. She no longer needs reported catheter and presents today for removal of the helene catheter. She is usually on Xarelto but has been taken off that for the last couple of days. Review of Systems Review of Systems: The remainder of the review of systems to include constitutional, HEENT, cardiovascular, respiratory, GI, , integumentary, musculoskeletal, endocrine, immunologic, hematologic, psychiatric, and neurologic are all negative except for which is mentioned above in the HPI. [facility] Past Medical History Medical History Abnormal ultrasound of breast Adnexal cyst Adnexal mass Age-related osteoporosis without current pathological fracture Atrial fibrillation X1 DURING CHEMO, TAKES XARELTO. FOLLOWS WITH Chronic a-fib Colon cancer RT COLON RESECTION 07/2017, LAST CHEMO 03/2018 Essential (primary) hypertension Fibrocystic changes of right breast HTN (hypertension) Hypercholesterolemia Hypothyroidism Lesion of ovary Mass of right breast on mammogram Mixed hyperlipidemia Neoplasms New onset a-fib Other hyperlipidemia Positive fecal occult blood test Post menopausal problems Villous adenoma of colon Vitamin D deficiency Family History Family History Mother Hypertension Family history of malignant neoplasm Family history of lung cancer Family history of malignant neoplasm of bone Family history of malignant neoplasm of breast Father Hypertension, Onset Age: 77 Family history of malignant neoplasm, Onset Age: 77 Family history of throat cancer Family history of malignant neoplasm of urinary bladder Other Family history of cardiovascular disease Social History Social History Smoking status: Never smoker Alcohol intake: never Substance use: never Substance use type: does not use Living arrangements: alone Gender identity (if verbalized by the patient): Female Spiritual care concerns: No Meds Home Medications and Allergies Home Medications Medication Instructions Recorded Confirmed Type calcium carbonate 600 mg-vitamin 1 cap PO BID 11/23/18 07/23/22 History D3 12.5 mcg (500 unit) capsule (Calcium 600 with Vitamin D3) vitamin E 268 mg (400 unit) capsule 400 unit PO DAILY 02/02/19 07/23/22 History alprazolam 0.25 mg tablet 0.25 mg PO Q8-10H PRN Anxiety 03/26/19 07/23/22 History lutein 6 mg tablet 6 mg PO DAILY 03/26/19 07/23/22 History multivitamin 1 tablet PO DAILY 03/26/19 07/23/22 History levothyroxine 50 mcg tablet 50 mcg PO DAILY #90 tabs 07/15/22 07/30/22 Rx alendronate 70 mg tablet 70 mg PO WEEKLY 07/23/22 07/23/22 History metoprolol succinate 50 mg 50 mg PO QAM 07/23/22 07/30/22 History tablet,extended release 24 hr rivaroxaban 15 mg tablet (Xarelto) 15 mg PO DAILY 07/23/22 07/23/22 History simvastatin 40 mg tablet 40 mg PO DAILY 07/23/22 07/23/22 History Allergies Allergy/AdvReac Type Severity Reaction Status Date / Time No Known Allergies Allergy Verified 07/30/22 10:34 Vital Signs Vital Signs - 24 hr 07/30/22 10:26 Temperature 36.6 C Pulse Rate 87 Respiratory Rate 14 Blood Pressure 167/81 H Pulse Oximetry 100 Oxygen Delivery Room Air Exam Const: General: comfortable and no acute distress Eyes: General: appearance normal, both eyes and all related structures Sclera: sclerae normal Pupils: Equal, round and reactive pupils present Neck: Neck: supple and no JVD Chest: Other: Right upper anterior chest port catheter extends to the right internal jugular vein. No rashes, erythema, or drainage from the area is noted. Resp: Effort & Inspection: normal res
--- NOTE | 2022-07-30 11:39 | WPDHPUPDATE1 ---
History and Physical Update Update Date/Time: 07/30/22 11:39 History and Physical has been reviewed, including an updated exam of the patient. There are NO changes in the patient's condition. Risks, benefits, and alternatives have been discussed and questions answered. Patient agrees to proceed with procedure.
[2022-07-30] MEDS: BUPivacaine HCL 0.5% 10 ML AMP INFILTRATE (12:29)
[2022-07-30] MEDS: LIDO 1%/EPINEPHRINE 1:100,000 20 ML VIAL 10 ML INFILTRATE (12:29)
--- NOTE | 2022-07-30 12:42 | P.OP_ITS ---
Procedure Note - Detailed Date of Procedure 07/30/22 Pre-op Diagnosis Hx of malignant neoplasm ascending colon Post-op Diagnosis Same Procedure Performed Removal of right internal jugular vein helene catheter. Surgeon Parker Raymundo MD Insurance Application Investigator Keshia Erazo [facility] Anesthesia MAC Indications Patient is a 67-year-old female who is about 4 years status post treatment for colon cancer. She no longer needs her port a catheter presents now for removal the helene catheter. Findings None. Description of Procedure After informed consent was obtained patient brought to the operating room she is placed in supine position IV sedation was administered by anesthesia. The area the right upper anterior chest was then prepped and draped in usual sterile fashion. A time-out was then performed correctly identifying the patient as well as procedure to be performed. She was not given any perioperative IV antibiotics. I then anesthetized the area the old scar in the right upper anterior chest with 1% lidocaine mixed with 0.5% Marcaine with some epinephrine. I then made a transverse incision through the old scar dissected down through the subcutaneous tissue electrocautery. The hub to the port was identified and then I dissected out the catheter attached to the port circumferentially with electrocautery. Then with gentle traction on the catheter I pulled out of the right internal jugular vein I held pressure on the area for about 5minutes. The port then dissected out of the subcutaneous port pocket with electrocautery. It was passed off table and discarded. I then irrigated out the incision with sterile saline solution. Hemostasis was good. I then fulgurated the capsule the subcutaneous tissues had formed around the port. I then proceeded to close incision utilizing interrupted 3-0 Vicryl sutures in subcutaneous tissues. The skin edges were approximated utilizing a running subcuticular 4 Monocryl suture. The incision was then cleaned and then skin glue was applied. The patient tolerated the procedure well no complications. All sponges, needles, and instrument counts were correct at the end procedure. EBL was _ 2 __cc. The patient was awakened and taken to recovery in stable and satisfactory condition. Implants Done Estimated Blood Loss 2 Drains No Packing No Pathology None sent Complications No immediate complications Condition Stable Disposition PACU [facility] Billing Surgery - Charge Forward: Surgery Billing
[2022-07-30 12:48] VITALS: BP 122/65; PULSE 71; RESP 14; O2SAT 100
[2022-07-30 13:05] VITALS: BP 147/72; PULSE 71; RESP 15
[2022-07-30 13:24] VITALS: BP 138/45; PULSE 64; RESP 14
== END 2022-07-30 13:36 | disposition home or self-care (01) ==
PROVIDERS: PCP Emergency Medicine; Visit Provider Surgery
PROC: (CPT 36589; principal; 2022-07-30 10:30)
DX: Z45.2 Encounter for adjustment and management of vascular access device (principal); Z92.21 Personal history of antineoplastic chemotherapy; Z85.038 Personal history of other malignant neoplasm of large intestine; I48.20 Chronic atrial fibrillation, unspecified; M81.0 Age-related osteoporosis without current pathological fracture; I10 Essential (primary) hypertension; E78.00 Pure hypercholesterolemia, unspecified; E03.9 Hypothyroidism, unspecified; E55.9 Vitamin D deficiency, unspecified; Z90.49 Acquired absence of other specified parts of digestive tract; Z79.01 Long term (current) use of anticoagulants
CPT/HCPCS: 36590; J2405; J2704; J3010; J7120

== ENCOUNTER 2022-08-24 09:23 | Outpatient (CLI) | payer MEDICARE, SELFPAY | END 2022-08-24 09:24 | disposition home or self-care (01) | LOC: ANHLAB 09:25 | PROVIDERS: PCP Emergency Medicine; Visit Provider Internal Medicine Hematology & Oncology | DX: R53.83 Other fatigue (principal) | CPT/HCPCS: 36415; 84443 ==

== ENCOUNTER 2022-10-26 09:10 | Outpatient (CLI) | payer MEDICARE, SELFPAY ==
[2022-10-26 12:30] LABS: Cholesterol 207 mg/dL (0-200); HDL Direct 67 mg/dL; Triglycerides 143 mg/dL (<150)
[2022-10-26 12:40] LABS: LDL Cholesterol Direct 100 mg/dL
== END 2022-10-26 09:11 | disposition home or self-care (01) ==
PROVIDERS: PCP Emergency Medicine; Visit Provider Internal Medicine Hematology & Oncology
DX: E78.5 Hyperlipidemia, unspecified (principal); R79.89 Other specified abnormal findings of blood chemistry
CPT/HCPCS: 36415; 80061; 84443

== ENCOUNTER 2022-12-09 09:20 | Outpatient (CLI) | payer MEDICARE, SELFPAY ==
[2022-12-09 13:10] LABS: Alanine Aminotransferase 21 U/L (6-35); Albumin Level 4.6 g/dL (3.5-5.1); Alkaline Phosphatase 69 U/L (38-126); Anion Gap 9 mmol/L (8-16); Aspartate Amino Transferase 31 U/L (14-36); Bilirubin,Total 0.9 mg/dL (0.2-1.3); Blood Urea Nitrogen 13 mg/dL (7-17); Calcium 9.7 mg/dL (8.4-10.2); Carbon Dioxide 28 mmol/L (22-30); Chloride 103 mmol/L (98-107); Estimated Glomerular Filt Rate > 60; Glucose 83 mg/dL (65-110); Potassium 4.5 mmol/L (3.4-5.0); Sodium 140 mmol/L (137-145)
[2022-12-09 13:44] LABS: Thyroid Stimulating Hormone 0.341 uIU/mL (0.465-4.680)
[2022-12-09 18:41] LABS: Vitamin D 25 Hydroxy 68.5 ng/mL
== END 2022-12-09 09:21 | disposition home or self-care (01) ==
PROVIDERS: PCP Emergency Medicine; Visit Provider Internal Medicine Hematology & Oncology
DX: E55.9 Vitamin D deficiency, unspecified (principal); E78.5 Hyperlipidemia, unspecified; I10 Essential (primary) hypertension
CPT/HCPCS: 36415; 80053; 82306; 84443

== ENCOUNTER 2023-03-04 08:30 | Outpatient (CLI) | payer MEDICARE, SELFPAY ==
--- NOTE | ~2023-03-04 | MM_ITS ---
EXAMINATION: MM screening ingris BI w julia HISTORY: Screening mammogram, family history of breast cancer in her mother. TECHNIQUE: Craniocaudal and mediolateral oblique 3-D tomosynthesis images were obtained and synthetic 2-D images were generated. CAD analysis was submitted and interpreted. COMPARISON: 01/06/2022, 12/09/2020, 09/18/2019 BREAST PARENCHYMAL COMPOSITION: The breasts are heterogeneously dense, which may obscure small masses . FINDINGS: No suspicious mass, calcification, or architectural distortion are identified in either raeann ast to suggest malignancy. There has been no suspicious interval change. IMPRESSION: 1. No mammographic evidence of malignancy. 2. Recommend routine screening mammography in one year. BI-RADS Category 1: Negative Reviewed, dictated and finalized at location A. CLING PROGRAM MANAGER
== END 2023-03-04 08:31 | disposition home or self-care (01) ==
LOC: ANHIMG 08:33
PROVIDERS: PCP Emergency Medicine; Visit Provider Emergency Medicine
DX: Z12.31 Encounter for screening mammogram for malignant neoplasm of breast (principal)
CPT/HCPCS: 77063; 77067

== ENCOUNTER 2023-04-11 09:24 | Outpatient (CLI) | payer MEDICARE, SELFPAY ==
[2023-04-11 10:17] LABS: Cholesterol 170 mg/dL (0-200); HDL Direct 61 mg/dL; Triglycerides 131 mg/dL (<150)
[2023-04-11 10:28] LABS: LDL Cholesterol Direct 86 mg/dL
[2023-04-11 11:45] LABS: Vitamin D 25 Hydroxy 69.7 ng/mL
== END 2023-04-11 09:25 | disposition home or self-care (01) ==
LOC: ANHLAB 09:26
PROVIDERS: PCP Emergency Medicine; Visit Provider Emergency Medicine
DX: E78.5 Hyperlipidemia, unspecified (principal); E55.9 Vitamin D deficiency, unspecified; E03.9 Hypothyroidism, unspecified
CPT/HCPCS: 36415; 80061; 82306; 84443

== ENCOUNTER 2023-05-24 09:47 | Outpatient (CLI) | payer MEDICARE, SELFPAY ==
[2023-05-24 10:44] LABS: Alanine Aminotransferase 22 U/L (6-35); Albumin Level 4.6 g/dL (3.5-5.1); Alkaline Phosphatase 66 U/L (38-126); Anion Gap 5 mmol/L (4-12); Aspartate Amino Transferase 29 U/L (14-36); Bilirubin,Total 0.9 mg/dL (0.2-1.3); Blood Urea Nitrogen 17 mg/dL (7-17); Calcium 9.8 mg/dL (8.4-10.2); Carbon Dioxide 29 mmol/L (22-30); Chloride 107 mmol/L (98-107); Cholesterol 185 mg/dL (0-200); Estimated Glomerular Filt Rate > 60; Glucose 102 mg/dL (65-110); HDL Direct 67 mg/dL; Potassium 4.3 mmol/L (3.4-5.0); Sodium 141 mmol/L (137-145); Triglycerides 159 mg/dL (<150)
[2023-05-24 10:55] LABS: LDL Cholesterol Direct 96 mg/dL
[2023-05-24 11:45] LABS: Vitamin D 25 Hydroxy 54.4 ng/mL
== END 2023-05-24 09:48 | disposition home or self-care (01) ==
LOC: ANHLAB 09:48
PROVIDERS: PCP Emergency Medicine; Visit Provider Internal Medicine Hematology & Oncology
DX: E78.5 Hyperlipidemia, unspecified (principal); E03.9 Hypothyroidism, unspecified; E55.9 Vitamin D deficiency, unspecified
CPT/HCPCS: 36415; 80053; 80061; 82306; 84443

== ENCOUNTER 2023-06-29 10:20 | Outpatient (CLI) | payer MEDICARE, SELFPAY | END 2023-06-29 10:21 | disposition home or self-care (01) | LOC: ANHLAB 10:22 | PROVIDERS: PCP Emergency Medicine; Visit Provider Internal Medicine Hematology & Oncology | DX: E03.9 Hypothyroidism, unspecified (principal) | CPT/HCPCS: 36415; 84443 ==

== ENCOUNTER 2023-10-24 09:24 | Outpatient (CLI) | payer MEDICARE, SELFPAY ==
[2023-10-24 10:54] LABS: Alanine Aminotransferase 22 U/L (6-35); Albumin Level 4.5 g/dL (3.5-5.1); Alkaline Phosphatase 72 U/L (38-126); Anion Gap 8 mmol/L (4-12); Aspartate Amino Transferase 30 U/L (14-36); Bilirubin,Total 0.9 mg/dL (0.2-1.3); Blood Urea Nitrogen 15 mg/dL (7-17); Calcium 9.3 mg/dL (8.4-10.2); Carbon Dioxide 27 mmol/L (22-30); Chloride 99 mmol/L (98-107); Cholesterol 186 mg/dL (0-200); Estimated Glomerular Filt Rate > 60; Glucose 93 mg/dL (65-110); HDL Direct 63 mg/dL; Sodium 134 mmol/L (137-145); Triglycerides 177 mg/dL (<150)
[2023-10-24 11:06] LABS: LDL Cholesterol Direct 91 mg/dL
[2023-10-24 11:23] LABS: Thyroid Stimulating Hormone 0.089 uIU/mL (0.465-4.680)
[2023-10-24 12:54] LABS: Vitamin D 25 Hydroxy 59.2 ng/mL
== END 2023-10-24 09:25 | disposition home or self-care (01) ==
LOC: ANHLAB 09:25
PROVIDERS: PCP Emergency Medicine; Visit Provider Internal Medicine Hematology & Oncology
DX: E78.5 Hyperlipidemia, unspecified (principal); E03.9 Hypothyroidism, unspecified; E55.9 Vitamin D deficiency, unspecified
CPT/HCPCS: 36415; 80053; 80061; 82306; 84443

== ENCOUNTER 2023-12-06 10:18 | Outpatient (CLI) | payer MEDICARE, SELFPAY | END 2023-12-06 10:19 | disposition home or self-care (01) | LOC: ANHLAB 10:20 | PROVIDERS: PCP Emergency Medicine; Referring Provider Emergency Medicine; Visit Provider Internal Medicine Hematology & Oncology | DX: R79.89 Other specified abnormal findings of blood chemistry (principal); I48.91 Unspecified atrial fibrillation | CPT/HCPCS: 36415; 84443 ==

== ENCOUNTER 2024-01-16 09:27 | Outpatient (CLI) | payer MEDICARE, SELFPAY ==
[2024-01-16 09:50] LABS: Eosinophils Absolute Auto 0.1 K/mm3 (0-0.3); Eosinophils Percent Auto 2.9 % (0-4.4); Hematocrit 37.5 % (37.0-47.0); Hemoglobin 12.4 g/dL (12.0-15.0); Immature Granulocyte Absolute 0.01 K/mm3 (0.00-0.031); Immature Granulocyte Percent A 0.2 % (0-0.5); Lymphocytes Absolute Auto 1.09 K/mm3 (0.9-3.2); Mean Corpuscular HGB Conc 33.1 g/dl (32-36); Mean Corpuscular Hemoglobin 30.5 pg (26-34); Mean Corpuscular Volume 92.1 fl (80-100); Mean Platelet Volume 9.6 fl (7.4-10.4); Monocytes Absolute Auto 0.3 K/mm3 (0.1-0.6); Monocytes Percent Auto 8.1 % (2.6-8.5); Neutrophils Absolute Auto 2.6 K/mm3 (1.3-6.7); Neutrophils Percent Auto 61.8 % (45.5-73.1); Platelet Count Result 241 k/mm3 (150-375); Red Blood Count 4.07 M/mm3 (4.2-5.4); Red Cell Distribution Width 12.6 % (11.5-14.5); White Blood Count 4.2 K/mm3 (4.5-10.0)
[2024-01-16 13:49] LABS: Alanine Aminotransferase 21 U/L (6-35); Albumin Level 4.3 g/dL (3.5-5.1); Alkaline Phosphatase 73 U/L (38-126); Anion Gap 6 mmol/L (4-12); Aspartate Amino Transferase 35 U/L (14-36); Bilirubin,Total 0.8 mg/dL (0.2-1.3); Blood Urea Nitrogen 15 mg/dL (7-17); Calcium 9.1 mg/dL (8.4-10.2); Carbon Dioxide 27 mmol/L (22-30); Chloride 107 mmol/L (98-107); Estimated Glomerular Filt Rate > 60; Glucose 84 mg/dL (65-110); Potassium 4.3 mmol/L (3.4-5.0); Sodium 140 mmol/L (137-145)
[2024-01-16 14:07] LABS: Thyroid Stimulating Hormone 0.045 uIU/mL (0.465-4.680)
[2024-01-16 14:15] LABS: Carcinoembryonic Antigen 2.3 ng/mL (0.0-3.0)
== END 2024-01-16 09:28 | disposition home or self-care (01) ==
LOC: ANHLAB 09:30
PROVIDERS: PCP Emergency Medicine; Visit Provider Internal Medicine Hematology & Oncology
DX: C18.2 Malignant neoplasm of ascending colon (principal); E03.9 Hypothyroidism, unspecified
CPT/HCPCS: 36415; 80053; 82378; 84443; 85025

== ENCOUNTER 2024-02-28 10:26 | Outpatient (CLI) | payer MEDICARE, SELFPAY ==
--- OUTSIDE RECORDS SUMMARY | 2024-03-01 17:26 | XMS_ITS | Referral Summary ---
Author Organization [facility] [address] Address [address] [place] [address] Care Team Providers Care Environmental Adviser Name Role Phone Emanuel Carrasco MD Primary Care Provide r Ede Ortiz MD Unavailable [phone] Allergies No known active allergies Medications alendronate (FOSAMAX) 70 mg tablet Take 1 tablet (70 mg total) by mouth once a week 08/05/2017 Active simvastatin (ZOCOR) 40 mg tablet Take 1 tablet (40 mg total) by mouth daily 07/28/2017 Active XARELTO 15 mg tablet Take 1 tablet (15 mg total) by mouth daily 10/13/2017 Active TOPROL XL 50 mg 24 hr tablet Take 1 tablet (50 mg total) by mouth daily 10/13/2017 Active ALPRAZolam (XANAX) 0.25 mg tablet Take 1 tablet (0.25 mg total) by mouth nightly as needed for anxiety Active calcium carbonate-vitam in D3 (CALTRATE 600 + D) 1500 mg (600 mg elemental) -400 units per tablet Take 1 tablet by mouth daily Active vitamin E 400 unit capsule Take 1 capsule (400 Units total) by mouth daily Active multivitamin tablet Take 1 tablet by mouth daily Active Synthroid 75 mcg tablet 08/11/2021 Active Active Problems Problem Noted Date Diagnosed Date Paroxysmal atrial fibrillation (CMS/HCC) 018 Social History Tobacco Use Types Packs/Day Years Used Date Smoking Tobacco: Never Smokeless Tobacco: Never Tobacco Cessation:Counseling Given: Not Answered Alcohol Use Standard Drinks/Week Comments No 0 (1 standard drink = 0.6 oz pur e alcohol) Personal Safety Answer Date Recorded Getting School Help Needed Not on file 01/20 Comments Unknown Sex and Gender Information Value Date Recorded Sex Assigned at Not on file Legal Sex Female 9:19 AM CDT Gender Identity Not on file Sexual Orientation Not on file Last Filed Vital Signs Vital Sign Reading Time Taken Comments Blood Pressure 130/74 09/27/2023 9:11 AM CDT Pulse 75 09/27/2023 9:11 AM CDT Temperature - - Respiratory Rate - - Oxygen Saturation 98% 09/27/2023 9:11 AM CDT Inhaled Oxygen Concentration - - Weight 55.8 kg (123 lb) 09/27/2023 9:11 AM CDT Height 162.6 cm (5' 4 ) 09/27/2023 9:11 AM CDT Body Mass Index 21.11 09/27/2023 9:11 AM CDT Plan of Treatment Not on file Insurance [employer] [facility] MEDIC[facility] Address: [address] [address] * Guarantor: Elke Haque Account Type Relation to Patient Date of Phone Billing Address Personal/Family Self [address] [place] [id number] [employer] MED[employer] [facility] MED[facility] Address: [address] [address] [place] [address] Care Teams Environmental Adviser Relationship Specialty Start Date End Date Emanuel Carrasco MD [address] [place], [place] [phone] PCP - General Emergency Medicine 09/26/17 Ede Ortiz MD [address] [facility] [address] [place], [place] [id number] Referring Physician Obstetrics and Gynecology 08/22/18
--- OUTSIDE RECORDS SUMMARY | 2024-03-01 17:26 | XMS_ITS | Clinical Summary ---
Author Organization [facility] [address] Address [address] [facility] [address] [place] [address] Care Team Providers Care Java Software Name Role Phone Emanuel Carrasco MD Primary Care Provide r Ede Ortiz MD Unavailable [phone] Allergies No known active allergies Medications alendronate [...] Diagnosed Date Paroxysmal atrial fibrillation (CMS/HCC) 018 Medical History Medical History Date Comments Atrial fibrillation (CMS/HCC) (HCC) Social History Tobacco Use Types Packs/Day Years [...] on file Sexual Orientation Not on file Obstetrics History Last Filed Vital Signs Vital Sign Reading [...] 09/27/2023 9:11 AM CDT Plan of Treatment Health Maintenance Due Date Last Done Comments Depression Screening 1945 Fall Risk Assessment 1945 Hepatitis C Screening 1945 Osteoporosis Screening-Bone Density Scan 1945 DTaP/Tdap/Td Vaccine (1 - Tdap) 1958 Hepatitis B Screening 1965 Zoster Vaccine (1 of 2) 1997 Pneumococcal vaccine 65+ (1 of 1 - PCV) 2012 Well Visit 65+ 2012 Influenza Vaccine (#1) 2023 Insurance [employer]ICARE [employer] [place] [id number] [facility] MEDICARE MEDICARE [employer]IONS Care Teams Java Software Relationship Specialty Start Date End Date Emanuel Carrasco MD [address] [place] [address] PCP - General Emergency Medicine 09/26/17 Ede Ortiz MD [address] [facility] [address] [place] [address] Referring Physician Obstetrics and Gynecology 08/22/18
--- OUTSIDE RECORDS SUMMARY | 2024-03-01 17:26 | XMS_ITS | Clinical Summary ---
Author Organization [facility] Address [address] [place] [address] Care Team Providers Care Piston Maker Name Role Phone Emanuel Carrasco MD Primary Care Provider + [phone] Allergies No known active allergies Medications simvastatin (ZOCOR) 40 mg tablet Take 40 mg by mouth daily. Active alendronate (FOSAMAX) 70 mg tablet Take 70 mg by mouth every 7 days empty stomach before other meds,with 8oz of water, stay upright 30 min . Active ALPRAZolam (XANAX) 0.25 mg tablet Take 0.25 mg by mouth 3 times daily as needed for Anxiety. Active OTHERIndication s:vision formula with lutein Take 1 Tablet by mouth daily Provider please include Medication name, dose, route and frequency . Active multivitamin (DAILY-PENNY) tablet Take 1 Tablet by mouth daily. Active vitamin E 400 unit capsule Take 400 Units by mouth daily. Active calcium carbonate + vitamin D (CALTRATE+D) 600 mg(1,500mg) -400 unit Tablet Take 1 Tablet by mouth 2 times daily with meals. Active metoprolol succinate (TOPROL XL) 50 mg Extended Release 24 hour tablet Take 50 mg by mouth daily family day care provider. 0 8 Active XARELTO 15 mg Tablet TAKE 1 TABLET DAILY AT 5PM 0 8 Active levothyroxine 75 mcg tablet Take 50 mcg by mouth daily in the morning. 50Mg Active Active Problems Problem Noted Date Diagnosed Date Atrial fibrillation 05/22/2019 Adnexal cyst 06/21/2018 Malignant neoplasm of ascending colon 08/30/2017 Encounters Date Type Department Care Team Description 01/24/2024 10:00 AM SENIOR UI UX DEVELOPER Office Visit [facility] Oncology and Hematology - Zheng [address] [place] [address] Car Garcia MD Malignant neoplasm of ascending colon (CMS/HCC) (Primary Dx) 01/18/2024 Orders Only [facility] Oncology and Hematology [facility] [address] [place], [place] [address] [place] [address] Car Garcia MD 12/07/2023 Orders Only [facility] Oncology and Hematology [place] [address] [address] [place] [address] Scanning, Provider from Last 3 Months Family History Medical History Relation Name Comments Cancer Father Breast Cancer Mother Relation Name Status Comments Father Mother Social History Tobacco Use Types Packs/Day Years Used Date Smoking Tobacco: Never Tobacco Cessation:Counseling Given: Not Answered Alcohol Use Standard Drinks/Week Comments No 0 (1 standard drink = 0.6 oz pur e alcohol) Comments No Sex and Gender Information Value Date Recorded Sex Assigned at Not on file Legal Sex Female 3:47 PM CDT Gender Identity Not on file Sexual Orientation Not on file Last Filed Vital Signs Vital Sign Reading Time Taken Comments Blood Pressure 135/81 01/24/2024 9:56 AM SENIOR UI UX DEVELOPER Pulse 65 01/24/2024 9:56 AM SENIOR UI UX DEVELOPER Temperature 36.3 ??C (97.4 ??F) 01/24/2024 9:56 AM CS T Respiratory Rate 18 01/24/2024 9:56 AM SENIOR UI UX DEVELOPER Oxygen Saturation 93% 01/24/2024 9:56 AM SENIOR UI UX DEVELOPER Inhaled Oxygen Concentration - - Weight 55.3 kg (122 lb) 01/24/2024 9:56 AM SENIOR UI UX DEVELOPER Height 162.6 cm (5' 4 ) 07/28/2021 1:20 PM CDT Body Mass Index 20.94 07/28/2021 1:20 PM CDT Plan of Treatment Upcoming Encounters Date Type Department Care Team (Late st Contact Info) Description 10/30/2024 10:15 AM CDT Office Visit [facility] Oncology and Hematology [facility] [address] [place] [address] [place] [address] [place] [address] [address] [place] [address] Health Maintenance Due Date Last Done Comments DTAP/TDAP/TD VACCINES (1 - Tdap) 1966 PNEUMOCOCCAL VACCINE 65+ YEARS (1 of 1 - PCV) 04/05/18 98 ZOSTER VACCINE (1 of 2) 1997 OSTEOPOROSIS SCREENING 2012 RSV VACCINE (60+ or ) (1 - 1-dose 75+ series) 2022 INFLUENZA VACCINE (#1) 2023 Procedures Procedure Name Priority Date/Time Associated Diagnosis Comments TSH Routine 01/16/2024 2:55 PM SENIOR UI UX DEVELOPER COMPREHENSIVE METABOLIC PANEL Routine 01/16/2024 2:54 PM SENIOR UI UX DEVELOPER CBC WITH DIFFERENTIAL Routine 01/16/2024 12:56 PM SENIOR UI UX DEVELOPER TSH Routine 12/06/2023 8:17 AM CDT from Last 3 Months Results * TSH (01/16/2024 2:55 PM SENIOR UI UX DEVELOPER) Only the most recent of2 resultswithin the time period is included. Blood Provider Scanning CHEMISTRY ORDERABLES Final Res ult * COMPREHENSIVE METABOLIC PANEL (01/16/2024 2:54 PM SENIOR UI UX DEVELOPER) Blood Car Garcia MD CHEMISTRY ORDERABLES Final Resu lt * CBC WITH DIFFERENTIAL (01/16/2024 12:56 PM SENIOR UI UX DEVELOPER) Blood Car Garcia MD HEMATOLOGY ORDERABLES Final Res ult from Last [address] [place] [address] [place] [id number] Care Teams Piston Maker Relationship Specialty Start Date End Date Emanuel Carrasco MD [address] [address] PCP - General Internal Medicine 08/30/17
== END 2024-02-28 10:27 | disposition home or self-care (01) ==
LOC: ANHLAB 10:28
PROVIDERS: PCP Emergency Medicine; Visit Provider Emergency Medicine
DX: E03.9 Hypothyroidism, unspecified (principal)
CPT/HCPCS: 36415; 84443

== ENCOUNTER 2024-04-17 09:20 | Outpatient (CLI) | payer MEDICARE, SELFPAY ==
--- NOTE | ~2024-04-17 | US_ITS ---
EXAMINATION: US thyroid DATE: 04/17/2024 09:35 INDICATION: Goiter. TECHNIQUE: Multiple ultrasound images of the thyroid were obtained. COMPARISON: None. FINDINGS: The right thyroid lobe is absent. The left thyroid lobe measures 2.1 x 1.1 x 1.1 cm. There is normal echotexture and echogenicity throughout the thyroid gland. No discrete nodules identified. Normal va scular flow is present. IMPRESSION: 1. Small left thyroid lobe. Absent right thyroid lobe. Reviewed, dictated and finalized at location B.
== END 2024-04-17 09:21 | disposition home or self-care (01) ==
PROVIDERS: PCP Internal Medicine; Visit Provider Internal Medicine
DX: E78.00 Pure hypercholesterolemia, unspecified (principal); I10 Essential (primary) hypertension; E03.9 Hypothyroidism, unspecified; M81.0 Age-related osteoporosis without current pathological fracture; Z90.89 Acquired absence of other organs
CPT/HCPCS: 76536

== ENCOUNTER 2024-04-17 09:49 | Outpatient (CLI) | payer MEDICARE, SELFPAY ==
--- OUTSIDE RECORDS SUMMARY | 2024-04-17 10:56 | XMS_ITS | Referral Summary ---
Author Organization [facility] [address] Address [address] [place] [address] Care Team Providers Care Metal Stud Framer Name Role Phone Emanuel Carrasco MD Primary Care Provide r Ede Ortiz MD Unavailable [phone] Allergies No known active allergies Medications alendronate [...] Noted Date Diagnosed Date Paroxysmal atrial fibrillation 10/25/2017 Social History Tobacco Use Types Packs/Day Years [...] Treatment Not on file Insurance MEDICARE SOLUTIONS [facility] MEDICARE Address: [facility] [address] [place] [address] [employer] MEDICARE MEDICARE SOLUTIONS [facility] MEDICARE Address: [address] [address] [place] [address] Care Teams Metal Stud Framer Relationship Specialty Start Date End Date Emanuel Carrasco MD [address] [place] [address] PCP - General Emergency Medicine 09/26/17 Ede Ortiz MD [address] [facility] [address] [place], [place] [address] Referring Physician Obstetrics and Gynecology 08/22/18
--- OUTSIDE RECORDS SUMMARY | 2024-04-17 10:56 | XMS_ITS | Clinical Summary ---
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 0 8 Active XARELTO 15 mg Tablet TAKE 1 TABLET DAILY AT 5PM 0 8 Active levothyroxine 75 mcg tablet Take 50 mcg by mouth daily in the morning. 50Mg Active Active Problems Problem Noted Date Diagnosed Date Atrial fibrillation 05/22/2019 Adnexal cyst 06/21/2018 Malignant neoplasm of ascending colon 08/30/2017 Encounters Date Type Department Care Team Description 04/14/2024 External Device Data STL ABSTRACTION Provider, Abstract 04/13/2024 External Device Data STL ABSTRACTION Provider, Abstract 03/28/2024 External Device Data STL ABSTRACTION Provider, Abstract 03/20/2024 External Device Data [facility]L ABSTRACTION Provider, Abstract 03/20/2024 External Device Data ST[facility] ABSTRACTION Provider, Abstract 03/20/2024 External Device Data STL ABSTRACTION Provider, Abstract 03/01/2024 External Device Data STL ABSTRACTION Provider, Abstract 01/24/2024 10:00 AM FLEECE TIER Office Visit [facility] Oncology and Hematology [facility] [address] [place] [address] Car Garcia MD Malignant neoplasm of ascending colon (CMS/HCC) (Primary Dx) 01/18/2024 Orders Only [facility] Oncology and Hematology [facility] [address] [place] [address] Car Garcia MD from Last 3 Months Family History Medical [...] Comments Blood Pressure 135/81 01/24/2024 9:56 AM FLEECE TIER Pulse 65 01/24/2024 9:56 AM FLEECE TIER Temperature 36.3 C (97.4 F) 01/24/2024 9:56 AM FLEECE TIER Respiratory Rate 18 01/24/2024 9:56 AM FLEECE TIER Oxygen Saturation 93% 01/24/2024 9:56 AM FLEECE TIER Inhaled Oxygen Concentration - - Weight 55.3 kg (122 lb) 01/24/2024 9:56 AM FLEECE TIER Height 162.6 cm (5' 4 ) 07/28/2021 1:20 PM CDT Body Mass Index 20.94 07/28/2021 1:20 PM CDT Plan of Treatment Upcoming Encounters Date Type Department Care Team (Late st Contact Info) Description 10/30/2024 10:15 AM CDT Office Visit [facility] Oncology and Hematology [facility] [address] [place] [address] Car Garcia MD [address] [facility] [address] [place] [address] Health Maintenance Due Date Last Done Comments DTAP/TDAP/TD VACCINES (1 - Tdap) 1966 PNEUMOCOCCAL VACCINE 50+ YEARS (1 of 1 - PCV) 04/05/18 98 ZOSTER VACCINE (1 of 2) 1997 OSTEOPOROSIS SCREENING 2012 RSV VACCINE (60+ or ) (1 - 1-dose 75+ series) 2022 INFLUENZA VACCINE (#1) 2023 Medicare Advantage (ND) Prev entative Visit/Annual Wellness Visit 02/08/2024 Insurance Care Teams Director Economic Relationship Specialty Start Date End Date Emanuel Carrasco MD [address] [place] [address] PCP - General Internal Medicine 08/30/17
--- OUTSIDE RECORDS SUMMARY | 2024-04-17 10:56 | XMS_ITS | Clinical Summary ---
Author Organization [facility] [address] Address [address] [place] [address] Care Team Providers Care Computer Repairer Name Role Phone Emanuel Carrasco MD Primary Care Provide r Ede Ortiz MD Unavailable [phone] Allergies No known active allergies Medications alendronate [...] Date Diagnosed Date Paroxysmal atrial fibrillation 10/25/2017 Medical History Medical History Date Comments Atrial fibrillation (HCC) Social History Tobacco Use Types Packs/Day [...] - Tdap) 1958 Hepatitis B Screening 1965 Pneumococcal vaccine 65+ (1 of 1 - PCV) 1997 Zoster Vaccine (1 of 2) 1997 Well Visit 65+ 2012 Influenza Vaccine (#1) 2023 Insurance MEDICARE SOLUTIONS AET MEDICARE MED[employer]ARE [employer]UTIONS Care Teams Computer Repairer Relationship Specialty Start Date End Date Emanuel Carrasco MD [address] [place] [address] PCP - General Emergency Medicine 09/26/17 Ede Ortiz MD [address] [facility] [address] [facility] [address] [place] [address] Referring Physician Obstetrics and Gynecology 08/22/18
--- OUTSIDE RECORDS SUMMARY | 2024-04-17 10:56 | XMS_ITS | Encounter Summary ---
Author Organization [facility] Address [address] [place] [address] Care Team Providers Care Machine Brush Maker Name Role Phone Emanuel Carrasco MD Primary Care Provider + [phone] Encounter Details Date Type Department Care Team (Late st Contact Info) Description 04/14/2024 External Device Data ST[facility] ABSTRACTION Provider, Abstract NO ADDRESS ON FILE Social History Tobacco Use Types Packs/Day Years Used Date Smoking Tobacco: Never Alcohol Use Standard Drinks/Week Comments No 0 (1 standard drink = 0.6 oz pur e alcohol) Comments No Sex and Gender Information Value Date Recorded Sex Assigned at Not on file Legal Sex Female 3:47 PM CDT Gender Identity Not on file Sexual Orientation Not on file documented as of this encounter Plan of Treatment Upcoming Encounters Date Type Department Care Team (Late st Contact Info) Description 10/30/2024 10:15 AM CDT Office Visit [facility] Oncology and Hematology - Zheng [address] [place] [address] Car Garcia MD [address] [facility] [address] [place] [address] documented as of this encounter Visit Diagnoses Not on filedocumented in this encounter Care Teams Machine Brush Maker Relationship Specialty Start Date End Date Emanuel Carrasco MD [address] [place] [address] PCP - General Internal Medicine 08/30/17 documented as of this encounter
[2024-04-17 14:48] LABS: Alanine Aminotransferase 24 U/L (6-35); Albumin Level 4.6 g/dL (3.5-5.1); Alkaline Phosphatase 92 U/L (38-126); Anion Gap 13 mmol/L (4-12); Aspartate Amino Transferase 29 U/L (14-36); Bilirubin,Total 0.8 mg/dL (0.2-1.3); Blood Urea Nitrogen 21 mg/dL (7-17); Calcium 9.6 mg/dL (8.4-10.2); Carbon Dioxide 25 mmol/L (22-30); Chloride 105 mmol/L (98-107); Cholesterol 184 mg/dL (0-200); Estimated Glomerular Filt Rate > 60; Glucose 93 mg/dL (65-110); HDL Direct 64 mg/dL; Potassium 4.4 mmol/L (3.4-5.0); Sodium 143 mmol/L (137-145); Triglycerides 135 mg/dL (<150)
[2024-04-17 14:51] LABS: Vitamin D 25 Hydroxy 64.6 ng/mL
[2024-04-17 15:00] LABS: LDL Cholesterol Direct 81 mg/dL
[2024-04-17 15:18] LABS: Thyroid Stimulating Hormone 0.585 uIU/mL (0.465-4.680)
== END 2024-04-17 09:50 | disposition home or self-care (01) ==
LOC: ANHLAB 09:50
PROVIDERS: PCP Internal Medicine; Visit Provider Emergency Medicine
DX: E78.5 Hyperlipidemia, unspecified (principal); E55.9 Vitamin D deficiency, unspecified
CPT/HCPCS: 36415; 80053; 80061; 82306; 84443

== ENCOUNTER 2024-05-29 09:20 | Outpatient (CLI) | payer MEDICARE, SELFPAY ==
--- OUTSIDE RECORDS SUMMARY | 2024-05-29 10:19 | XMS_ITS | Clinical Summary ---
Author Organization [facility] [address] Address [address] [place] [address] Care Team Providers Care Nylon Winder Name Role Phone Emanuel Carrasco MD Primary Care Provide r Ede Ortiz MD Unavailable [phone] Allergies No known active allergies Medications alendronate [...] 1997 Well Visit 65+ 2012 Influenza Vaccine (Season Ended) 2024 Insurance [facility] MEDICARE ADVANTAGE [facility] Address: [facility] [id number] [place] [address] [facility] MEDICARE ADVANTAGE Care Teams Nylon Winder Relationship Specialty Start Date End Date Emanuel Carrasco MD [address] [place] [address] PCP - General Emergency Medicine 09/26/17 Ede Ortiz MD [address] [place] [address] Referring Physician Obstetrics and Gynecology 08/22/18
--- OUTSIDE RECORDS SUMMARY | 2024-05-29 10:19 | XMS_ITS | Referral Summary ---
Author Organization [facility] [address] Address [address] [place] [address] Care Team Providers Care Chainstitch Seat Joiner Name Role Phone Emanuel Carrasco MD Primary Care Provide r Ede Ortiz MD Unavailable [phone] Allergies No known active allergies Medications alendronate [...] Plan of Treatment Not on file Insurance [id number] Address: [facility] [address] [place] [address] [facility]ICARE [facility] MEDICARE ADVANTAGE [facility] MEDIC[facility] Address: [address] [address] [place] [address] Care Teams Chainstitch Seat Joiner Relationship Specialty Start Date End Date Emanuel Carrasco MD [address] [place] [address] PCP - General Emergency Medicine 09/26/17 Ede Ortiz MD [address] [facility] [address] [facility] [address] [place] [address] Referring Physician Obstetrics and Gynecology 08/22/18
--- OUTSIDE RECORDS SUMMARY | 2024-05-29 10:19 | XMS_ITS | Clinical Summary ---
Author Organization [facility] [place] Address [address] [place] [address] Care Team Providers Care Movie Producer Name Role Phone Emanuel Carrasco MD Primary Care Provider + [phone] Allergies No known active allergies Medications simvastatin [...] tablet Take 50 mg by mouth daily director plans. 0 8 Active XARELTO 15 mg Tablet TAKE 1 TABLET DAILY AT 5PM 0 8 Active levothyroxine 75 mcg tablet Take 50 mcg by mouth daily in the morning. 50Mg Active Active Problems Problem Noted Date Diagnosed Date Atrial fibrillation 05/22/2019 Adnexal cyst 06/21/2018 Malignant neoplasm of ascending colon 08/30/2017 Encounters Date Type Department Care Team Description 04/25/2024 External Device Data STL ABSTRACTION Provider, Abstract 04/25/2024 External Device Data STL ABSTRACTION Provider, Abstract 04/14/2024 External Device Data STL ABSTRACTION Provider, Abstract 04/13/2024 External Device Data STL ABSTRACTION Provider, Abstract 03/28/2024 External Device Data STL ABSTRACTION Provider, Abstract 03/20/2024 External Device Data STL ABSTRACTION Provider, Abstract 03/20/2024 External Device Data STL ABSTRACTION Provider, Abstract 03/20/2024 External Device Data STL ABSTRACTION Provider, Abstract 03/01/2024 External Device Data STL ABSTRACTION Provider, Abstract from Last 3 Months Family History Medical [...] Comments Blood Pressure 135/81 01/24/2024 9:56 AM PARKING LOT SIGNALER Pulse 65 01/24/2024 9:56 AM PARKING LOT SIGNALER Temperature 36.3 C (97.4 F) 01/24/2024 9:56 AM PARKING LOT SIGNALER Respiratory Rate 18 01/24/2024 9:56 AM PARKING LOT SIGNALER Oxygen Saturation 93% 01/24/2024 9:56 AM PARKING LOT SIGNALER Inhaled Oxygen Concentration - - Weight 55.3 kg (122 lb) 01/24/2024 9:56 AM PARKING LOT SIGNALER Height 162.6 cm (5' 4 ) 07/28/2021 1:20 PM CDT Body Mass Index 20.94 07/28/2021 1:20 PM CDT Plan of Treatment Upcoming Encounters Date Type Department Care Team (Late st Contact Info) Description 10/30/2024 10:15 AM CDT Office Visit [facility] Oncology and Hematology - Zheng [address] [place] [address] Car Garcia MD [address] [facility] [address] [place] [address] Health Maintenance Due Date Last Done Comments DTAP/TDAP/TD VACCINES (1 - Tdap) 1966 PNEUMOCOCCAL VACCINE 50+ YEARS (1 of 1 - PCV) 04/05/18 98 ZOSTER VACCINE (1 of 2) 1997 OSTEOPOROSIS SCREENING 2012 RSV VACCINE (60+ or ) (1 - 1-dose 75+ series) 2022 INFLUENZA VACCINE (#1) 2023 Insurance Care Teams Movie Producer Relationship Specialty Start Date End Date Emanuel Carrasco MD [address] [place] [address] PCP - General Internal Medicine 08/30/17
[2024-05-31 06:34] LABS: Thyroid Peroxidase Antibodies 14 IU/mL (<9)
== END 2024-05-29 09:21 | disposition home or self-care (01) ==
LOC: ANHLAB 09:21
PROVIDERS: Visit Provider Internal Medicine
DX: E78.00 Pure hypercholesterolemia, unspecified (principal); I10 Essential (primary) hypertension; E03.9 Hypothyroidism, unspecified; M81.0 Age-related osteoporosis without current pathological fracture
CPT/HCPCS: 36415; 86376

== ENCOUNTER 2024-07-06 14:13 | Outpatient (CLI) | payer MEDICARE, SELFPAY ==
--- NOTE | ~2024-07-06 | DEXA_ITS ---
Bone Density Report Name: NATE GREGORY Age: 79 Sex: Female Ethnicity: White Date of : 1945 Indication: postmenopausal osteoporosis; monitoring treatment; cancer; hysterectomy; Referring Provider: DASIA ANDREWS Study: Bone densitometry was performed. Exam Date: July 06, 2024 Accession number: [id number] Bone Density: Region BMD T-score Z-score Classification AP Spine(L1-L4) 0.911 -1.2 1.3 Osteopenia Femoral Neck (Left) 0.496 -3.2 -1.0 Osteoporosis Total Hip (Left) 0.579 -3.0 -1.1 Osteoporosis Femoral Neck (Right) 0.543 -2.8 -0.6 Osteoporosis Total Hip (Right) 0.632 -2.5 -0.6 Osteoporosis Total Hip Mean 0.606 -2.8 -0.9 Osteoporosis World Health Organization criteria for BMD impression classify patients as: Normal (T-score at or above -1.0), Osteopenia (T-score between -1.0 and -2.5), or Osteoporosis (T-score at or below -2.5). 10-year Fracture Risk: FRAX not reported because: Some T-score for Spine Total or Hip Total or Femoral Neck at or below -2.5 Treated for osteoporosis Previous Exams: Region Exam Age BMD T-score BMD Change BMD Change Date g/cm2 vs Baseline vs Previous AP Spine (L1-L4) 07/06/2024 79 0.911 -1.2 0.062 (7.3%)* -0.004 (-0.4%) 01/06/2022 76 0.914 -1.2 0.066 (7.8%)* -0.006 (-0.6%) 09/18/2019 74 0.920 -1.2 0.072 (8.5%)* 0.072 (8.5%)* 01/14/2014 68 0.848 -1.8 Total Hip(Left) 07/06/2024 79 0.579 -3.0 -0.038 (-6.2%) -0.017 (-2.8%) 01/06/2022 76 0.596 -2.8 -0.021 (-3.5%) -0.010 (-1.7%) 09/18/2019 74 0.606 -2.8 -0.011 (-1.8%) -0.012 (-1.9%) 03/16/2016 70 0.618 -2.7 0.001 (0.1%) 0.001 (0.1%) 01/14/2014 68 0.617 -2.7 Total Hip(Right) 07/06/2024 79 0.632 -2.5 -0.012 (-1.9%) -0.011 (-1.7%) 01/06/2022 76 0.643 -2.4 -0.001 (-0.2%) -0.013 (-2.0%) 09/18/2019 74 0.656 -2.3 0.012 (1.8%) 0.009 (1.4%) 03/16/2016 70 0.647 -2.4 0.003 (0.4%) 0.003 (0.4%) 01/14/2014 68 0.645 -2.4 *Denotes significance at 95% confidence level, LSC for AP Spine = 0.022 g/cm2, LSC for Total Hip = 0.027 g/cm2 Clinical Information Provided by Patient: Is being treated for osteoporosis Has used the following medications: Fosamax (i.e. alendronate), Vitamin D, Calcium Has the following medical conditions: Cancer, Hysterectomy Patient maximum height was 64 Menopause Age: 37 Drinks caffeinated beverages Onset of menses at age 18 Number of children 0 Impression: The patient has osteoporosis, based on the Left Femoral Neck T-score. No significant bone loss was observed. Discussion: PATIENT UNDER TREATMENT WITH NO SIGNIFICANT BMD LOSS SINCE LAST EXAM. In an untreated patient, BMD typically declines with age. A lack of decline or gain is usually a sign that treatment is efficacious and fracture risk is reduced. It is important to ask patients whether they are taking their medications and to encourage continued and appropriate compliance with their osteoporosis therapies to reduce fracture risk. It is also important to review their risk factors and encourage appropriate calcium and vitamin D intakes, exercise, fall prevention and other lifestyle measures. Follow-Up: Consider a repeat BMD and Vertebral Fracture Assessment (VFA) exam in 2 years or sooner if medically necessary, to reassess this patient's status. Reported by: CHELA on 07/06/2024 3:01:00 PM. Reviewed, dictated and finalized at location A.
--- NOTE | ~2024-07-06 | MM_ITS ---
EXAMINATION: MM screening ingris BI w julia HISTORY: Screening TECHNIQUE: Craniocaudal and mediolateral oblique 3-D tomosynthesis images were obtained and synthetic 2-D images were generated. CAD analysis was submitted and interpreted. COMPARISON: Comparison to multiple prior studies sequentially, with oldest reviewed study dated 11/07. BREAST PARENCHYMAL COMPOSITION: Dense: The breasts are heterogeneously dense, which may obscure small masses FINDINGS: There is no evidence of suspicious mass, calcification, or architectural distortion to sugg est malignancy in either breast. There has been no suspicious interval change. IMPRESSION: 1. No mammographic evidence of malignancy. 2. Recommend routine screening mammography in one year. BI-RADS Category 1: Negative Reviewed, dictated and finalized at location A.
--- OUTSIDE RECORDS SUMMARY | 2024-07-06 14:16 | XMS_ITS | Clinical Summary ---
Author Organization [facility] [place] [address] [place] [address] [address] [facility] [address] [place] [address] Care Team Providers Care Saw Boss Name Role Phone Emanuel Carrasco MD Primary Care Provide r Ede Ortiz MD Unavailable [phone] Allergies No known active allergies Medications alendronate [...] per tablet Take 1 tablet by mouth 2 (two) times a day 600mg bid Active vitamin E 400 unit capsule Take 1 capsule (400 Units total) by mouth daily Active multivitamin tablet Take 1 tablet by mouth daily Active Synthroid 75 mcg tablet 08/11/2021 Active Active Problems Problem Noted Date Diagnosed Date Paroxysmal atrial fibrillation 10/25/2017 Encounters Date Type Department Care Team Description 06/06/2024 9:15 AM CDT Office Visit [facility] Cardiology [address] [facility] [address] [place] [address] Emanuel Contreras MD Paroxysmal atrial fibrillation (HCC) (Primary Dx) from Last 3 Months Medical History Medical History Date Comments Atrial fibrillation (HCC) Social History Tobacco Use Types Packs/Day Years Used Date Smoking Tobacco: Never Smokeless Tobacco: Never Tobacco Cessation:Counseling Given: Not Answered Alcohol Use Standard Drinks/Week Comments No 0 (1 standard drink = 0.6 oz pur e alcohol) Comments Unknown Sex and Gender Information Value Date Recorded Sex Assigned at Not on file Legal Sex Female 9:19 AM CDT Gender Identity Not on file Sexual Orientation Not on file Obstetrics History Last Filed Vital Signs Vital Sign Reading Time Taken Comments Blood Pressure 144/70 06/06/2024 9:28 AM CDT Pulse 68 06/06/2024 9:28 AM CDT Temperature - - Respiratory Rate - - Oxygen Saturation 98% 06/06/2024 9:28 AM CDT Inhaled Oxygen Concentration - - Weight 56.7 kg (125 lb) 06/06/2024 9:28 AM CDT Height 162.6 cm (5' 4) 06/06/2024 9:28 AM CDT Body Mass Index 21.46 06/06/2024 9:28 AM CDT Plan of Treatment Health Maintenance Due Date Last Done Comments Depression Screening 1947 Fall Risk Assessment 1945 Hepatitis C Screening 1945 Osteoporosis Screening-Bone Density Scan 1945 DTaP/Tdap/Td Vaccine (1 - Tdap) 1958 Hepatitis B Screening 1965 Pneumococcal vaccine 65+ (1 of 1 - PCV) 1997 Zoster Vaccine (1 of 2) 1997 Well Visit 65+ 2012 Influenza Vaccine (Season Ended) 2024 Insurance [facility] MEDICARE ADVANTAGE [facility] MEDICARE [facility] MEDICARE ADVANTAGE Care Teams Saw Boss Relationship Specialty Start Date End Date Emanuel Carrasco MD [address] [place] [address] PCP - General Emergency Medicine 09/26/17 Ede Ortiz MD [address] [address] Referring Physician Obstetrics and Gynecology 08/22/18
--- OUTSIDE RECORDS SUMMARY | 2024-07-06 14:16 | XMS_ITS | Referral Summary ---
Author Organization [facility] [address] [facility] [address] [place] [address] Care Team Providers Care Roll Cutter Name Role Phone Emanuel Carrasco MD Primary Care Provide r Ede Ortiz MD Unavailable [phone] Encounters Date Type Department Care Team Description 06/06/2024 9:15 AM CDT Office Visit [facility] Cardiology [address] [facility] [address] [place] [address] Emanuel Contreras MD Paroxysmal atrial fibrillation (HCC) (Primary Dx) from Last 3 Months Allergies No known active allergies Medications alendronate [...] 06/06/2024 9:28 AM CDT Plan of Treatment Not on file Insurance [facility] MEDICARE ADVANTAGE [facility] Address: [facility] [address] [place] [address] [employer] MEDICARE [facility] MEDICARE ADVANTAGE [facility] Address: [address] [address] [place] [address] Care Teams Roll Cutter Relationship Specialty Start Date End Date Emanuel Carrasco MD [address] [facility] [place] [address] PCP - General Emergency Medicine 09/26/17 Ede Ortiz MD [address] [facility] [address] [place] [address] Referring Physician Obstetrics and Gynecology 08/22/18
--- OUTSIDE RECORDS SUMMARY | 2024-07-06 14:16 | XMS_ITS | Clinical Summary ---
Author Organization [facility] [place] Address [address] [place] [address] Care Team Providers Care Enrollment Services Dean Name Role Phone Emanuel Carrasco MD Primary Care Provider + [phone] Allergies No known active allergies Medications simvastatin [...] tablet Take 50 mg by mouth daily security checker. 0 8 Active XARELTO 15 mg Tablet TAKE 1 TABLET DAILY AT 5PM 0 8 Active levothyroxine 75 mcg tablet Take 50 mcg by mouth daily in the morning. 50Mg Active Active Problems Problem Noted Date Diagnosed Date Atrial fibrillation 05/22/2019 Adnexal cyst 06/21/2018 Malignant neoplasm of ascending colon 08/30/2017 Encounters Date Type Department Care Team Description 07/03/2024 External Device Data STL ABSTRACTION Provider, Abstract 07/03/2024 External Device Data STL ABSTRACTION Provider, Abstract 06/27/2024 External Device Data STL ABSTRACTION Provider, Abstract 06/26/2024 External Device Data STL ABSTRACTION Provider, Abstract [...] Comments Blood Pressure 135/81 01/24/2024 9:56 AM NEWSPAPER REPORTER Pulse 65 01/24/2024 9:56 AM NEWSPAPER REPORTER Temperature 36.3 C (97.4 F) 01/24/2024 9:56 AM NEWSPAPER REPORTER Respiratory Rate 18 01/24/2024 9:56 AM NEWSPAPER REPORTER Oxygen Saturation 93% 01/24/2024 9:56 AM NEWSPAPER REPORTER Inhaled Oxygen Concentration - - Weight 55.3 kg (122 lb) 01/24/2024 9:56 AM NEWSPAPER REPORTER Height 162.6 cm (5' 4) 07/28/2021 1:20 PM CDT Body Mass Index 20.94 07/28/2021 1:20 PM CDT Plan of Treatment Upcoming Encounters Date Type Department Care Team (Late st Contact Info) Description 10/30/2024 10:15 AM CDT Office Visit [facility] Oncology and Hematology - Zheng [address] [facility] [address] [place] [address] Car Garcia MD [address] [facility] [address] [place] [address] Health Maintenance Due Date Last Done Comments DTAP/TDAP/TD VACCINES (1 - Tdap) 1966 PNEUMOCOCCAL VACCINE 50+ YEARS (1 of 1 - PCV) 04/05/18 98 ZOSTER VACCINE (1 of 2) 1997 OSTEOPOROSIS SCREENING 2012 RSV VACCINE (60+ or ) (1 - 1-dose 75+ series) 2022 INFLUENZA VACCINE (#1) 2023 Insurance Care Teams Enrollment Services Dean Relationship Specialty Start Date End Date Emanuel Carrasco MD [address] [place] [address] PCP - General Internal Medicine 08/30/17
== END 2024-07-06 14:14 | disposition home or self-care (01) ==
LOC: ANHIMG 14:13
PROVIDERS: PCP Emergency Medicine; Visit Provider Emergency Medicine
DX: Z12.31 Encounter for screening mammogram for malignant neoplasm of breast (principal); M81.0 Age-related osteoporosis without current pathological fracture; Z78.0 Asymptomatic menopausal state
CPT/HCPCS: 77063; 77067; 77080

== ENCOUNTER 2024-10-15 09:36 | Outpatient (CLI) | payer MEDICARE, SELFPAY ==
--- OUTSIDE RECORDS SUMMARY | 2024-10-15 09:54 | XMS_ITS | Clinical Summary ---
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 0 8 Active XARELTO 15 mg Tablet TAKE 1 TABLET DAILY AT 5PM 0 8 Active levothyroxine 75 mcg tablet Take 50 mcg by mouth daily in the morning. 50Mg Active Active Problems Problem Noted Date Diagnosed Date Atrial fibrillation 05/22/2019 Adnexal cyst 06/21/2018 Malignant neoplasm of ascending colon 08/30/2017 Encounters Date Type Department Care Team Description 09/26/2024 External Device Data [facility] ABSTRACTION Provider, Abstract 09/11/2024 External Device Data [facility] ABSTRACTION Provider, Abstract 08/22/2024 External Device Data [facility]STRACTION Provider, Abstract 08/21/2024 External Device Data [facility] ABSTRACTION Provider, Abstract 07/31/2024 External Device Data [facility] ABSTRACTION Provider, Abstract [...] Comments Blood Pressure 135/81 01/24/2024 9:56 AM RESOURCE TECHNICIAN Pulse 65 01/24/2024 9:56 AM RESOURCE TECHNICIAN Temperature 36.3 C (97.4 F) 01/24/2024 9:56 AM RESOURCE TECHNICIAN Respiratory Rate 18 01/24/2024 9:56 AM RESOURCE TECHNICIAN Oxygen Saturation 93% 01/24/2024 9:56 AM RESOURCE TECHNICIAN Inhaled Oxygen Concentration - - Weight 55.3 kg (122 lb) 01/24/2024 9:56 AM RESOURCE TECHNICIAN Height 162.6 cm (5' 4) 07/28/2021 1:20 PM CDT Body Mass Index 20.94 07/28/2021 1:20 PM CDT Plan of Treatment Upcoming Encounters Date Type Department Care Team (Late st Contact Info) Description 10/30/2024 10:15 AM CDT Office Visit [facility] Oncology and Hematology - [address] [facility] [address] [place] [address] Car Garcia MD [address] [facility] [address] [place] [address] Health Maintenance Due Date Last Done Comments DTAP/TDAP/TD VACCINES (1 - Tdap) 1966 PNEUMOCOCCAL VACCINE 50+ YEARS (1 of 1 - PCV) 04/05/18 98 ZOSTER VACCINE (1 of 2) 1997 OSTEOPOROSIS SCREENING 2012 RSV VACCINE (60+ or ) (1 - 1-dose 75+ series) 2022 Medicare Advantage ([place]) Prev entative Visit/Annual Wellness Visit 02/08/2024 INFLUENZA VACCINE (#1) 2024 Insurance Care Teams Authorization Nurse Relationship Specialty Start Date End Date Emanuel Carrasco MD [address] [place] [address] PCP - General Internal Medicine 08/30/17
--- OUTSIDE RECORDS SUMMARY | 2024-10-15 09:54 | XMS_ITS | Clinical Summary ---
Author Organization [facility] [address] [facility] [address] [place] [address] Care Team Providers Care Grocery Shopper Name Role Phone Emanuel Carrasco MD Primary Care Provide r Ede Ortiz MD Unavailable [phone] Allergies No known active allergies Medications alendronate [...] Well Visit 65+ 2012 Influenza Vaccine (#1) 2024 Insurance [facility] MEDICARE [facility] Address: [facility] [address] [place] [address] [facility] MEDICARE [facility]IC[facility] Address: [address] [address] [place] [address] Care Teams Grocery Shopper Relationship Specialty Start Date End Date Emanuel Carrasco MD [address] [place] [address] PCP - General Emergency Medicine 09/26/17 Ede Ortiz MD [address] [facility] [address] [place] [address] Referring Physician Obstetrics and Gynecology 08/22/18
[2024-10-15 10:05] LABS: Hematocrit 39.8 % (37.0-47.0); Hemoglobin 13.1 g/dL (12.0-15.0); Immature Granulocyte Percent A 0.3 % (0-0.5); Lymphocytes Absolute Auto 1.49 K/mm3 (0.9-3.2); Mean Corpuscular HGB Conc 32.9 g/dl (32-36); Mean Corpuscular Hemoglobin 30.1 pg (26-34); Mean Corpuscular Volume 91.5 fl (80-100); Nucleated Red Blood Cells Absolute Auto 0.000 K/mm3 (0.0-0.012); Nucleated Red Blood Cells Perc 0.0 % (0.0-0.2); Platelet Count Result 242 k/mm3 (150-375); Red Blood Count 4.35 M/mm3 (4.2-5.4); White Blood Count 5.8 K/mm3 (4.5-10.0)
[2024-10-15 10:37] LABS: Alanine Aminotransferase 23 U/L (6-35); Albumin Level 4.3 g/dL (3.5-5.1); Alkaline Phosphatase 92 U/L (38-126); Anion Gap 7 mmol/L (4-12); Aspartate Amino Transferase 36 U/L (14-36); Bilirubin,Total 0.8 mg/dL (0.2-1.3); Blood Urea Nitrogen 15 mg/dL (7-17); Calcium 9.5 mg/dL (8.4-10.2); Carbon Dioxide 28 mmol/L (22-30); Chloride 108 mmol/L (98-107); Cholesterol 165 mg/dL (0-200); Estimated Glomerular Filt Rate > 60; Glucose 93 mg/dL (65-110); HDL Direct 52 mg/dL; Potassium 4.9 mmol/L (3.4-5.0); Sodium 143 mmol/L (137-145); Total Protein 7.3 g/dL (6.3-8.2); Triglycerides 155 mg/dL (<150)
[2024-10-15 11:07] LABS: Carcinoembryonic Antigen 1.7 ng/mL (0.0-3.0)
== END 2024-10-15 09:37 | disposition home or self-care (01) ==
LOC: ANHLAB 09:37
PROVIDERS: Internal Medicine Hematology & Oncology; PCP Emergency Medicine; Visit Provider Emergency Medicine
DX: C18.2 Malignant neoplasm of ascending colon (principal); E78.5 Hyperlipidemia, unspecified; E55.9 Vitamin D deficiency, unspecified
CPT/HCPCS: 36415; 80053; 80061; 82306; 82378; 85025

== ENCOUNTER 2024-11-27 09:58 | Outpatient (CLI) | payer MEDICARE, SELFPAY ==
[2024-11-27 16:42] LABS: Free T4 Free Thyroxine 1.89 ng/dL (0.78-2.19)
[2024-11-27 16:57] LABS: Thyroid Stimulating Hormone 0.046 uIU/mL (0.465-4.680)
== END 2024-11-27 09:59 | disposition home or self-care (01) ==
LOC: ANHLAB 09:59
PROVIDERS: PCP Emergency Medicine; Visit Provider Internal Medicine
DX: E03.9 Hypothyroidism, unspecified (principal); M81.0 Age-related osteoporosis without current pathological fracture
CPT/HCPCS: 36415; 84439; 84443

== ENCOUNTER 2025-01-24 13:10 | Outpatient (CLI) | payer MEDICARE, SELFPAY ==
--- OUTSIDE RECORDS SUMMARY | 2025-01-24 14:07 | XMS_ITS | Clinical Summary ---
Author Organization [facility] [address] [place] [address] [address] [facility] [address] [place] [address] Care Team Providers Care Wan Support Specialist Name Role Phone Emanuel Carrasco MD Primary Care Provide r Ede Ortiz MD Unavailable Allergies No known active allergies Medications alendronate [...] Encounters Date Type Department Care Team Description 01/01/2025 10:00 AM MEDIA INTERN Office Visit [facility] Cardiology [address] [facility] [address] [place] [address] Emanuel Contreras MD Paroxysmal atrial [...] Sign Reading Time Taken Comments Blood Pressure 138/82 01/01/2025 9:47 AM MEDIA INTERN Pulse 66 01/01/2025 9:47 AM MEDIA INTERN Temperature - - Respiratory Rate - - Oxygen Saturation 96% 01/01/2025 9:47 AM MEDIA INTERN Inhaled Oxygen Concentration - - Weight 56.6 kg (124 lb 12.8 oz) 01/01/2025 9:47 AM MEDIA INTERN Height 162.6 cm (5' 4) 01/01/2025 9:47 AM MEDIA INTERN Body Mass Index 21.42 01/01/2025 9:47 AM MEDIA INTERN Plan of Treatment Health Maintenance Due Date Last Done Comments Depression Screening 1945 Fall Risk Assessment 1945 Hepatitis C Screening 1945 Osteoporosis Screening-Bone Density Scan 1945 DTaP/Tdap/Td Vaccine (1 - Tdap) 1958 Hepatitis B Screening 1965 Pneumococcal vaccine 65+ (1 of 1 - PCV) 1997 Zoster Vaccine (1 of 2) 1997 Well Visit 65+ 2012 Influenza Vaccine (#1) 2024 Insurance [facility]IC[facility] Address: [address] [address] [place] [address] [facility] MEDICARE [employer] MEDICARE ADVANTAGE [facility] Address: [address] [address] [place] [address] Care Teams Wan Support Specialist Relationship Specialty Start Date End Date Emanuel Carrasco MD [address] [place] [address] PCP - General Emergency Medicine 09/26/17 Ede Ortiz MD [address] [address] Referring Physician Obstetrics and Gynecology 08/22/18
--- OUTSIDE RECORDS SUMMARY | 2025-01-24 14:07 | XMS_ITS | Clinical Summary ---
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 0 8 Active XARELTO 15 mg Tablet TAKE 1 TABLET DAILY AT 5PM 0 8 Active levothyroxine 75 mcg tablet Take 50 mcg by mouth daily in the morning. 50Mg Active Active Problems Problem Noted Date Diagnosed Date Atrial fibrillation 05/22/2019 Adnexal cyst 06/21/2018 Malignant neoplasm of ascending colon 08/30/2017 Encounters Date Type Department Care Team Description 12/25/2024 External Device Data [facility] ABSTRACTION Provider, Abstract 11/20/2024 External Device Data [facility] ABSTRACTION Provider, Abstract 10/30/2024 10:15 AM CDT Office Visit [facility] Oncology and Hematology [facility] [address] [place] [address] Car Garcia MD Malignant neoplasm of ascending colon (CMS/HCC) (Primary Dx) from Last 3 Months Family History Medical [...] Sign Reading Time Taken Comments Blood Pressure 161/84 10/30/2024 10:01 AM CDT Pulse 79 10/30/2024 9:59 AM CDT Temperature 36.3 C (97.4 F) 10/30/2024 9:59 AM CDT Respiratory Rate 15 10/30/2024 9:59 AM CDT Oxygen Saturation 98% 10/30/2024 9:59 AM CDT Inhaled Oxygen Concentration - - Weight 56.2 kg (123 lb 12.8 oz) 10/30/2024 9:59 AM CDT Height 162.6 cm (5' 4) 07/28/2021 1:20 PM CDT Body Mass Index 21.25 07/28/2021 1:20 PM CDT Plan of Treatment Upcoming Encounters Date Type Department Care Team (Late st Contact Info) Description 10/01/2025 11:45 AM CDT Office Visit [facility] Oncology and Hematology - [address] [place] [address] Car Garcia MD [address] [facility] [address] [place] [address] Health Maintenance Due Date Last Done Comments DTAP/TDAP/TD VACCINES (1 - Tdap) 1966 PNEUMOCOCCAL VACCINE 50+ YEARS (1 of 1 - PCV) 04/05/18 98 ZOSTER VACCINE (1 of 2) 1997 OSTEOPOROSIS SCREENING 2012 RSV VACCINE (60+ or ) (1 - 1-dose 75+ series) 2022 INFLUENZA VACCINE (#1) 2024 Insurance Care Teams Accounting File Clerk Relationship Specialty Start Date End Date Emanuel Carrasco MD [address] [place] [address] PCP - General Internal Medicine 08/30/17
[2025-01-24 16:25] LABS: Total Volume 24 Hour Urine 550 ml
[2025-01-24 16:36] LABS: Creatinine 24 Hour Urine 0.7 gm/24 (0.8-1.8)
[2025-01-24 16:38] LABS: Alanine Aminotransferase 27 U/L (6-35); Albumin Level 4.3 g/dL (3.5-5.1); Alkaline Phosphatase 99 U/L (38-126); Anion Gap 8 mmol/L (4-12); Aspartate Amino Transferase 69 U/L (14-36); Bilirubin,Total 0.6 mg/dL (0.2-1.3); Blood Urea Nitrogen 19 mg/dL (7-17); Calcium 9.1 mg/dL (8.4-10.2); Carbon Dioxide 24 mmol/L (22-30); Chloride 107 mmol/L (98-107); Estimated Glomerular Filt Rate > 60; Glucose 90 mg/dL (65-110); Magnesium 2.1 mg/dL (1.6-2.3); Potassium 4.4 mmol/L (3.4-5.0); Sodium 139 mmol/L (137-145); Total Protein 7.2 g/dL (6.3-8.2)
[2025-01-24 16:50] LABS: Parathyroid Intact 36.2 pg/mL (14.5-75.2)
[2025-01-24 16:51] LABS: Free T4 Free Thyroxine 1.39 ng/dL (0.78-2.19)
[2025-01-24 17:14] LABS: Thyroid Stimulating Hormone 0.722 uIU/mL (0.465-4.680)
[2025-01-25 10:08] LABS: Calcium, Urine 20.6 mg/dL (Not Estab.)
== END 2025-01-24 13:11 | disposition home or self-care (01) ==
LOC: ANHLAB 13:11
PROVIDERS: PCP Emergency Medicine; Visit Provider Internal Medicine
DX: I49.1 Atrial premature depolarization (principal); M81.0 Age-related osteoporosis without current pathological fracture; E78.00 Pure hypercholesterolemia, unspecified; I10 Essential (primary) hypertension; E03.9 Hypothyroidism, unspecified; R79.89 Other specified abnormal findings of blood chemistry
CPT/HCPCS: 36415; 80053; 81050; 82306; 82340; 82570; 83735; 83970; 84100; 84439; 84443